=== PATIENT | male | born 1960 | race Caucasian/White ===

== ENCOUNTER 2020-04-27 10:01 | Emergency (ER) | payer BC, OTHER, SELFPAY ==
--- NOTE | 2020-04-27 10:10 | ED.SKABFB ---
HPI - Skin/Abscess/Foreign Bdy General Chief complaint: Skin/Abscess/Foreign Body Stated complaint: red infection on leg Time Seen by Provider: 04/27/20 10:09 Source: patient and RN notes reviewed Mode of arrival: ambulatory Limitations: no limitations History of Present Illness HPI narrative: 59-year-old male history of type 2 diabetes presents concern for red, warm area to his left anterior lower leg. Reports symptoms started yesterday, reports he had a fever yesterday of 103, with chills. Reports he took ibuprofen and the fever resolved. Denies any fever today. Reports he recently had a checkup with his primary care physician, and reports his blood sugars are under control. MD complaint: discoloration Related Data Home Medications Medication Instructions Recorded Confirmed dapagliflozin [Farxiga] 5 mg DAILY 04/27/20 04/27/20 glipizide 10 mg DAILY 04/27/20 04/27/20 metformin 1,000 mg BID 04/27/20 04/27/20 simvastatin 40 mg DAILY 04/27/20 04/27/20 Allergies Allergy/AdvReac Type Severity Reaction Status Date / Time No Known Drug Allergies Allergy Unknown Verified 06/13/17 13:55 Review of Systems Review of Systems: Narrative: CONSTITUTIONAL: Denies malaise. Reports chills, fever. EYES: Denies visual changes, redness, or discharge. ENT: Denies rhinorrhea, congestion, sinus pain, otalgia or sore throat. CARDIOVASCULAR: Denies chest pain, palpitations, or edema. RESPIRATORY: Denies cough or dyspnea. GASTROINTESTINAL: Denies abdominal pain, nausea, vomiting, diarrhea SKIN: Reports red, tender, swollen area on the left leg MUSCULOSKELETAL: Denies musculoskeletal pain NEUROLOGIC: Denies numbness, weakness All systems reviewed & are unremarkable except as noted in HPI and below PMFSH Social History Social History Gender identity (if verbalized by the patient): Female Comments At time of signature, agree with nursing past medical, surgical, social and family history. There is no relevant family history pertinent to the presenting complaint Exam Narrative: Exam Narrative: GENERAL: Well-appearing, well-nourished, and in no acute distress. HEAD: Normocephalic, atraumatic. EYES: PERRLA, conjunctivae clear ENT: Mucous membranes moist. NECK: Supple. No lymphadenopathy CHEST: Clear to auscultation. No respiratory distress. HEART: Regular rate and rhythm. Normal peripheral pulses SKIN: Warm, dry. Erythema, edema, warmth, induration noted to the left anterior lower leg consistent with cellulitis NEURO: Alert and oriented x3. PSYCH: Normal mood and affect Course Course Emergency Course: Patient is aware of diagnosis, understands and agrees to treatment plan. Anticipatory guidance given. Patient agrees to follow-up as directed and is aware of reasons to seek care at the emergency department. Portions of this record may have been created with voice recognition software Vital Signs Vital signs: Vital Signs Temperature 98.7 F 04/27/20 10:13 Pulse Rate 83 04/27/20 10:13 Respiratory Rate 18 04/27/20 10:13 Blood Pressure 123/52 L 04/27/20 10:13 Pulse Oximetry 100 04/27/20 10:13 Temperature 98.7 F 04/27/20 10:13 Pulse Rate 83 04/27/20 10:13 Respiratory Rate 18 04/27/20 10:13 Blood Pressure 123/52 L 04/27/20 10:13 Pulse Oximetry 100 04/27/20 10:13 Reviewed. MDM - Skin/Abscess/Foreign Bdy MDM Narrative Medical decision making narrative: Exam findings show no acute concerns or changes; patient is non-toxic appearing and is in no distress. Patient is appropriate for outpatient treatment and follow-up. Critical Care Time Critical Care Time Critical Care Time: No Discharge Plan Discharge Clinical Impression: Cellulitis Qualifiers: Site of cellulitis: extremity Site of cellulitis of extremity: lower extremity Laterality: left Qualified Code(s): L03.116 - Cellulitis of left lower limb Patient Disposition: Home, Self-Care Condition: Stable Instructions: Antibiotic Form, Cell
[2020-04-27 10:13] VITALS: BP 123/52; PULSE 83; RESP 18; TEMP 37.1; O2SAT 100
== END 2020-04-27 10:22 | disposition home or self-care (01) ==
PROVIDERS: Emergency Provider Nurse Practitioner; PCP Family Medicine
DX: L03.116 Cellulitis of left lower limb (principal); E78.00 Pure hypercholesterolemia, unspecified; E11.9 Type 2 diabetes mellitus without complications
CPT/HCPCS: 99213; G0463

== ENCOUNTER 2020-06-01 23:17 | Inpatient (IN) | payer BC, OTHER, SELFPAY ==
--- NOTE | ~2020-06-01 | CT_ITS ---
EXAMINATION: CT abdomen pelvis w con INDICATION: Abdominal pain and fever TECHNIQUE: Computed tomographic images of the abdomen and pelvis were obtained after the administrati on of 100 cc of Omnipaque 350 intravenous contrast. The dose-length product (DLP) was 1535.67 mGy-cm. Automated exposure control and iterative reconstruction technique were employed. COMPARISON: None available FINDINGS: The lung bases are clear. The heart size is normal. Calcified coronary artery atheroscleros is is noted. There is mild nodularity of the liver surface. There is enhancement in her mild thickeni ng of the gallbladder wall with pericholecystic fat stranding. The spleen, pancreas, and adrenal glan ds are normal. The kidneys are unremarkable. No pathologically enlarged abdominal or pelvic lymph nod es are identified. There is no free intraperitoneal gas or evidence of bowel obstruction. The appendi x is normal. There is a fat-containing umbilical hernia. IMPRESSION: 1. Findings suspicious for acute cholecystitis. Correlate for right upper quadrant tenderness and if present, recommend right upper quadrant ultrasound and/or nuclear hepatobiliary scan. Reviewed, dictated and finalized at location A. UER PIN PRESS OPERATOR IMPRESSION: 1. Findings suspicious for acute cholecystitis. Correlate for right upper quadr ant tenderness and if present, recommend right upper quadrant ultrasound and/or nuclear hepatobiliary scan.
--- NOTE | ~2020-06-01 | NM_ITS ---
EXAMINATION: NM hepatobiliary w pharm EXAM DATE: 06/03/2020 14:04 INDICATION: CT suggesting acute cholecystitis. TECHNIQUE: 5 mCi Tc-99m mebrofenin (Choletec) was administered intravenously. Scintigraphic images o f the abdomen were obtained for one hour. At the 1 hour time point, 2.4 mcg sincalide (Kinevac) was a dministered by slow intravenous infusion, and imaging was continued for 30 minutes. Gallbladder eject ion fraction was calculated by the technologist. Correlation is made to CT scan from yesterday. FINDINGS: There is normal clearance of radiotracer from the blood pool. There is homogeneous tracer u ptake by the liver. Activity progresses to the gallbladder at 20 minutes and and bowel by 1 hour. Th e gallbladder ejection fraction (GBEF) is 89 % (most patients with gallbladder dysfunction have GBEF < 35%, but there is overlap with the normal range of 10-90%). IMPRESSION: Gallbladder ejection fraction 89%, within normal range. Reviewed, dictated and finalized at location A. INIST
--- NOTE | ~2020-06-01 | XR_ITS ---
EXAMINATION: XR chest 1V portable INDICATION: Chest pain TECHNIQUE: Portable AP chest at 0301 hours COMPARISON: None available FINDINGS: The lungs are free of acute opacities. There is no pleural effusion or pneumothorax. The ca rdiomediastinal silhouette is normal. IMPRESSION: 1. No acute cardiopulmonary abnormality. Reviewed, dictated and finalized at location A. L PRESS OPERATOR
--- NOTE | 2020-06-01 23:20 | PC.NURSE ---
Pt. daughter Solis phone number [phone]. call w/ updates
[2020-06-01 23:24] VITALS: BP 105/55; PULSE 95; RESP 24; O2SAT 99
--- NOTE | 2020-06-01 23:27 | ECG_ITS ---
Measurements Intervals [place] Rate: 106 P: 48 [place]: 167 QRS: 17 QRSD: 86 T: 46 QT: 365 QTc: 486 Interpretive Statements SINUS TACHYCARDIA BORDERLINE ST ABNORMALITY- ANT/HIGH LAT LEADS ABNORMAL ECG Electronically Signed On 06-02-2020 7:39:02 ROUGHENER by Jamari Moody D.O.
--- NOTE | 2020-06-01 23:31 | ED.ABDPAIN ---
HPI - Abdominal Pain General Chief Complaint: Abdominal Pain Stated Complaint: Dizzy, Chest tightness, fever Time Seen by Provider: 06/01/20 23:31 Source: patient Mode of arrival: ambulatory Limitations: no limitations History of Present Illness HPI narrative: Patient is a 59-year-old male with a history of type 2 diabetes who presents for evaluation of dark, tarry stool, abdominal pain. Patient reports he has been feeling unwell over the past 24 hours with upper abdominal pain as well as dark, tarry stools that developed on Sunday. Patient also states he had one episode of emesis that was dark brown in color. Patient denies taking any anticoagulation. He denies has any history of GI bleed. He denies any chronic ibuprofen use. Patient reports he has felt febrile with chills. He denies cough or shortness of breath. He reports feeling lightheaded and dizzy with standing. He endorses a mild squeezing chest tightness but denies overt pain. He denies back pain, jaw or shoulder pain. He denies diaphoresis. Patient denies any syncopal events. His daughter is a nurse and she drove him to the emergency department this evening. She is not present with him currently. Related Data Home Medications Medication Instructions Recorded Confirmed dapagliflozin [Farxiga] 5 mg DAILY 04/27/20 04/27/20 glipizide 10 mg PO BID 04/27/20 04/27/20 metformin 1,000 mg BID 04/27/20 04/27/20 simvastatin 40 mg DAILY 04/27/20 04/27/20 aspirin [Adult Aspirin] 81 mg PO DAILY 06/02/20 exenatide microspheres [Bydureon] mg SUBCUT WEEKLY 06/02/20 lisinopril 10 mg PO DAILY 06/02/20 Allergies Allergy/AdvReac Type Severity Reaction Status Date / Time No Known Drug Allergies Allergy Unknown Verified 06/13/17 13:55 Review of Systems Review of Systems: Narrative: CONSTITUTIONAL: Reports subjective fever and chills EYES: Denies visual changes, redness, or discharge. ENT: Denies rhinorrhea, congestion, sore throat, or otalgia. CARDIOVASCULAR: Reports mild chest pain without palpitations RESPIRATORY: Denies cough or dyspnea. GASTROINTESTINAL: Reports abdominal pain, nausea, earlier episodes of emesis and dark/tarry stool GENITOURINARY: Denies dysuria or hematuria. SKIN: Denies rash or itching. MUSCULOSKELETAL: Denies back pain, joint pain, or myalgia. NEUROLOGIC: Denies headache, numbness, or weakness. Reports lightheadedness. [facility] Past Medical History Medical History Cellulitis Hypertension Type 2 diabetes mellitus Social History Social History Alcohol intake: never Substance use: never Living arrangements: with family Gender identity (if verbalized by the patient): Male Exam Narrative: Exam Narrative: GENERAL: Awake, alert HEAD: Normocephalic, atraumatic. EYES: PERRLA and EOMI. ENT: Nares clear, no rhinorrhea or epistaxis. Mucous membranes moist. NECK: Supple. CHEST: No respiratory distress, breathing even and non labored HEART: Borderline tachycardic rate, sinus rhythm ABDOMEN:Non distended, mild left lower quadrant tenderness without rebound, rigidity or guarding Rectal exam: Grossly melanotic stool, guaiac positive, no fissures EXTREMITIES: Normal range of motion. No edema. SKIN: Pale, cool. No rash. NEURO:No focal deficits. Alert and oriented x3 Course Vital Signs Vital signs: Vital Signs Pulse Rate 95 06/01/20 23:24 Respiratory Rate 24 H 06/01/20 23:24 Blood Pressure 105/55 L 06/01/20 23:24 Pulse Oximetry 99 06/01/20 23:24 Temperature 36.8 C 06/02/20 03:02 Pulse Rate 96 06/02/20 03:03 Respiratory Rate 21 H 06/02/20 03:03 Blood Pressure 95/50 L 06/02/20 03:03 Pulse Oximetry 100 06/02/20 03:03 MDM - Abdominal Pain MDM Narrative Medical decision making narrative: Patient is a 59-year-old male who presented for evaluation of dark, tarry stool, abdominal pain. At the time of assessment,
[2020-06-02] VITALS (38 sets, daily range): BP systolic 80–122; BP diastolic 33–85; PULSE 81–105; RESP 16–25; TEMP 36.6–37.2; O2SAT 94–100; BMI 44.1
[2020-06-02 00:02] LABS: Mean Corpuscular HGB Conc 32.9 g/dl (32-36); Mean Corpuscular Hemoglobin 30.5 pg (26-34); Mean Corpuscular Volume 92.5 fl (80-100); Mean Platelet Volume 11.8 fl (7.4-10.4); Platelet Count Result 143 k/mm3 (150-375); Red Blood Count 1.74 M/mm3 (4.6-6.20); Red Cell Distribution Width 15.5 % (11.5-14.5); White Blood Count 20.4 K/mm3 (4.5-10.0)
[2020-06-02] MEDS: SODIUM CHLORIDE 0.9% IV 1,000 ML 999 ML IV CONT ×2 (00:10→10:19)
[2020-06-02 00:11] LABS: INR 1.4; Prothrombin Time 17.4 Seconds (11.1-14.7)
[2020-06-02] MEDS: ONDANSETRON INJ 4 MG/2 ML VIAL IV PUSH (00:11)
[2020-06-02] MEDS: PANTOPRAZOLE SODIUM IV 40 MG VIAL 80 MG IV PUSH (00:11)
[2020-06-02 00:12] LABS: Partial Thromboplastin Time 28.2 SECONDS (22.3-36.8)
[2020-06-02 00:18] LABS: Hematocrit 16.1 % (42.0-52.0); Hemoglobin 5.3 g/dL (14.0-18.0)
[2020-06-02 00:20] LABS: Albumin Level 2.3 g/dL (3.5-5.1); Alkaline Phosphatase 31 U/L (38-126); Anion Gap 13 mmol/L (8-16); Aspartate Amino Transferase 23 U/L (17-59); Bilirubin,Total 0.4 mg/dL (0.2-1.3); Blood Urea Nitrogen 41 mg/dL (9-20); Carbon Dioxide 17 mmol/L (22-30); Chloride 100 mmol/L (98-107); Eosinophils Absolute Manual 0.61 K/mm3 (0.02-0.5); Eosinophils Percent Manual 3 % (0-4); Estimated CRCL calculation 86 ml/min; Estimated Glomerular Filt Rate > 60; Glucose 173 mg/dL (75-110); Lipase 257 U/L (23-300); Lymphocytes Absolute Manual 5.91 K/mm3 (1.1-4.5); Monocytes Absolute Manual 3.67 K/mm3 (0.1-0.90); Monocytes Percent Manual 18 % (3-9); Neutrophils Percent Manual 50 % (46-73); Nucleated Red Blood Cells 2 %; Platelet Estimate Adequate (Adequate); Potassium 3.7 mmol/L (3.4-5.0); Sodium 130 mmol/L (137-145); Total Cells Counted 100
[2020-06-02 00:21] LABS: Hypochromasia 1+ (NORMAL); Ovalocytes 1+ (NORMAL)
[2020-06-02 00:23] LABS: Lactic Acid Reflex 8.3 mmol/L (0.7-2.1)
[2020-06-02 00:27] LABS: Troponin I 0.016 ng/mL (0.000-0.034)
[2020-06-02 00:35] LABS: Alanine Aminotransferase 22 U/L (4-50)
--- NOTE | 2020-06-02 01:46 | PM.IMHP ---
H&P: HPI History of Present Illness Date/Time: 06/02/20 01:46 Chief Complaint: Abd pain, dark black stools. Narrative: This is a pleasant 59-year-old type two obese diabetic male who presented to the hospital with a complaint of dark tarry stools since this past weekend, vomiting up blood, as well as abdominal discomfort. He describes that his symptoms started on Sunday when he got nauseated and vomited up dark bloody material. Associated symptoms include dizziness. He denies any chest pain, fevers, chills, cough, significant shortness of breath, dysuria, hematuria, diarrhea, or focal neurological deficits. The patient has no previous history of GI bleeds and his last colonoscopy was about 3 years ago. He states that he was told that he had a polyp but otherwise there was no other abnormalities on his colonoscopy. The patient is not on any anticoagulants or anti-platelet agents. He also denies any daily NSAID use. The patient has no previous history of peptic ulcer disease but has never had any EGD done before. The patient was evaluated emergency room this evening and found to be hypotensive and severely septic. His H&H came back at 5.3 and 16.1. His white blood cell count was 20,400 and his lactic acid was 8.3. CT abd/pelvis demonstrated gallbladder is underdistended, there appears to be wall getting an inflammation around the gallbladder wall. Mild thickening of the descending colon with trace fluid in the left lower quadrant. The patient has been treated with IV fluids, antibiotics, protonix, and is going to receive pRBC transfusions. ER provider has consulted Gastroenetrology and our Home Visits Nurse. Review of Systems Review of Systems: All systems reviewed & are unremarkable except as noted in HPI and below PMFSH Past Medical History Medical History Cellulitis Hypertension Type 2 diabetes mellitus Social History Social History Alcohol intake: never Substance use: never Living arrangements: with family Gender identity (if verbalized by the patient): Male Comments Past surgical history and family medical histories are reviewed and noncontributory. Meds Home Medications and Allergies Home Medications Medication Instructions Recorded Confirmed Type cephalexin 500 mg PO QID 10 Days #40 cap 04/27/20 Rx dapagliflozin [Farxiga] 5 mg DAILY 04/27/20 04/27/20 History glipizide 10 mg PO BID 04/27/20 04/27/20 History metformin 1,000 mg BID 04/27/20 04/27/20 History simvastatin 40 mg DAILY 04/27/20 04/27/20 History aspirin [Adult Aspirin] 81 mg PO DAILY 06/02/20 History exenatide microspheres [Bydureon] mg SUBCUT WEEKLY 06/02/20 History lisinopril 10 mg PO DAILY 06/02/20 History Allergies Allergy/AdvReac Type Severity Reaction Status Date / Time No Known Drug Allergies Allergy Unknown Verified 06/13/17 13:55 Vital Signs Vital Signs - 24 hr 06/01/20 23:24 06/02/20 00:01 06/02/20 00:02 Pulse Rate 95 94 94 Respiratory Rate 24 H 22 H 24 H Blood Pressure 105/55 L 80/39 L Pulse Oximetry 99 100 100 06/02/20 00:22 06/02/20 01:11 Pulse Rate 85 105 H Respiratory Rate 23 H 21 H Blood Pressure 100/56 L Pulse Oximetry 98 100 Exam Const: General: cooperative, alert, awake, ill appearing, tired appearing and other (Pale appearing++ ) Nutritional Appearance: well nourished and obese morbidly obese HENMT: Head: normal to inspection General nose exam: Normal external nose present Face and sinus: normal facial exam Mouth: Yes Normal oral and palatal mucosa present and Yes oropharynx normal Eyes: Pupils: Equal, round and reactive pupils present EOM: EOMs intact bilaterally Neck: Neck: supple and no JVD Thyroid: thyroid normal Lymphatic: lymphadenopathy not noted Resp: Effort & Inspection: normal respiratory effort Auscultation: clear to auscultation bilaterally Cardio: Rate: regular rate
[2020-06-02 02:35] LABS: Add Urine Microscopic? YES; Appearance Urine Clear (Clear); Bacteria Urine Trace /hpf; Bilirubin Urine Negative (Negative); Blood Urine Negative (Negative); Color Urine Yellow (Yellow); Glucose Urine UA 3+ mg/dL (Negative); Ketones Urine Trace mg/dL (Negative); Leukocyte Esterase Ur Negative LEU/UL (Negative); Mucus Urine Rare /lpf; Nitrate Urine Negative (Negative); Protein Urine Negative (Negative); RBC Urine 0-2 /hpf (0-2); Specific Grav Ur 1.022 (1.001-1.035); Squamous Epithelial Cell Urine Rare /hpf (Few); Urobilinogen Urine Negative mg/dL (<2.0); WBC Urine 0-3 /hpf
[2020-06-02] MEDS: SODIUM CHLORIDE 0.9% IV 250 ML 30 ML IV CONT ×2 (02:45→09:39)
[2020-06-02 02:59] LABS: Reflex Lactic Acid Yes or No Add Lactic
[2020-06-02] MEDS: SODIUM CHLORIDE 0.9% IV 1,000 ML 125 ML IV CONT ×3 (03:43→22:06)
--- NOTE | 2020-06-02 03:51 | ADMGEN ---
This patient, Tim Silva, was admitted to Intensive Care Unit-7 at 0330 on 06/02/2020. Patient/family oriented to hospital policies and general routines including ID bracelet, bed and alarms, visiting hours, pain management, procedures, bathroom and other care routines, personal items, smoking policy, room service/diet, and visiting hours. Information on how to activate the Rapid Response Team has been discussed. Patient/Family are encouraged to report perceived risks to care and to ask questions if they do not understand what they are told or what they should do.
[2020-06-02 05:09] LABS: Lactic Acid 6.9 mmol/L (0.7-2.1)
[2020-06-02 05:17] LABS: Troponin I 0.015 ng/mL (0.000-0.034)
[2020-06-02 06:23] LABS: Glucose Point of Care 151 (65-105)
--- NOTE | 2020-06-02 06:33 | ECG_ITS ---
Measurements Intervals [place] Rate: 94 P: 47 [place]: 176 QRS: 13 QRSD: 80 T: 56 QT: 361 QTc: 453 Interpretive Statements SINUS RHYTHM BASELINE WANDER- V4-V6 NORMAL ECG Electronically Signed On 06-04-2020 10:59:36 PROGRAM ANALYST by Jamari Moody D.O.
[2020-06-02 08:29] LABS: Hematocrit 20.2 % (42.0-52.0); Hemoglobin 6.8 g/dL (14.0-18.0)
[2020-06-02 08:34] LABS: Mean Corpuscular HGB Conc 33.2 g/dl (32-36); Mean Corpuscular Hemoglobin 30.5 pg (26-34); Mean Corpuscular Volume 91.8 fl (80-100); Mean Platelet Volume 11.1 fl (7.4-10.4); Platelet Count Result 104 k/mm3 (150-375); Red Cell Distribution Width 15.2 % (11.5-14.5)
[2020-06-02 08:45] LABS: Lactic Acid Reflex 5.6 mmol/L (0.7-2.1)
--- NOTE | 2020-06-02 09:51 | WPDCNINT ---
Assessment and Plan Assessment and plan (1) Acute GI bleeding: Code(s): K92.2 - Gastrointestinal hemorrhage, unspecified Status: Acute Assessment and Plan: Peptic ulcer disease versus gastritis Patient has received 2 units of packed red cells. Hemoglobin 6.8 despite. Will transfuse additional 1 unit Continue serial monitoring of hemoglobin, NPO GI consulted and plan for EGD today Continue IV protonix drip. (2) Cholecystitis: Code(s): K81.9 - Cholecystitis, unspecified Status: Acute Assessment and Plan: CT abdomen pelvis suggested swelling of gallbladder wall suspicious of acute cholecystitis. No gallstones were seen Patient denies any symptoms since that could be attributed to cholecystitis and is not tender in right upper quadrant. Discuss with surgery. They will order further imaging either right upper quadrant ultrasound or HIDA scan to further evaluate Continue Zosyn (3) Sepsis: Code(s): A41.9 - Sepsis, unspecified organism Status: Acute Assessment and Plan: Patient did meet criteria for sepsis on presentation with elevated white count and lactic acid level But this could be secondary to GI bleed UA and chest x-ray were negative Blood culture has been sent and are pending Patient has not required any vasopressor Lactate is improving Continue Zosyn at this time Continue IV fluids. Will give additional 1 L bolus (4) Thrombocytopenia: Code(s): D69.6 - Thrombocytopenia, unspecified Status: Acute Assessment and Plan: Monitor platelets. Transfuse prn. SCDs (5) Type 2 diabetes mellitus: Qualifiers: Diabetes mellitus buttermaker insulin use: without buttermaker use Diabetes mellitus complication status: without complication Qualified Code(s): E11.9 - Type 2 diabetes mellitus without complications Code(s): E11.9 - Type 2 diabetes mellitus without complications Status: Chronic Assessment and Plan: Accuchecks, SSI Coverage, hypoglycemic protocol. (6) Hypertension: Qualifiers: Hypertension type: unspecified Qualified Code(s): I10 - Essential (primary) hypertension Code(s): I10 - Essential (primary) hypertension Status: Chronic Assessment and Plan: Hold antihypertensives as the patient has normal to low blood pressure right now Additional Plan DVT prophylaxis -SCDs Stress ulcer prophylaxis -on IV PPI infusion Nutrition -NPO Code Status - Full Code Total Critical Care Time - 30 minutes Due to a high probability of clinically significant, life threatening deterioration, the patient required my highest level of preparedness to intervene emergently and I personally spent this critical care time directly and personally managing the patient. This critical care time included obtaining a history; examining the patient; pulse oximetry; ordering and review of studies; arranging urgent treatment with development of a management plan; evaluation of patient's response to treatment; frequent reassessment; and discussions with other providers. It was exclusive of separately billable procedures and treating other patients and teaching time. Please see Assessment and Plan section and the rest of the note for further information on patient assessment and treatment Tool Chaser Consult Note Consult date: 06/02/20 Time Seen: 08:00 HPI: Tim Silva is a 59 year old male with past medical history of obesity, diabetes and hypertension who presented to the ED last night with a complaint of dark tarry stools since this past weekend, vomiting up blood, as well as abdominal discomfort. He describes that his symptoms started on Sunday when he got nauseated and vomited up bright red blood. Patient also has some abdominal pain which he thought was mild. He vomited at least 3 times. Later he noted dark black tarry stool. Yesterday evening 6 started feeling dizzy and weak and hence was forced to come to ER. In ED he was
--- NOTE | 2020-06-02 10:37 | PC.NURSE ---
TAKEN TO GI LAB PER STRETCHER. PRBCS INFUSING PER PUMP WITHOUT DIFFICULTIES.
[2020-06-02 10:46] LABS: Glucose Point of Care 149 (65-105)
[2020-06-02] MEDS: LACTATED RINGERS 1,000 ML 150 ML IV CONT (10:48)
--- NOTE | 2020-06-02 11:27 | WPDGICN ---
Assessment and Plan Assessment and plan (1) Acute GI bleeding: Code(s): K92.2 - Gastrointestinal hemorrhage, unspecified Status: Acute Assessment and Plan: admitted to ICU, most likely ugib he is getting blood transfusion will do urgent EGD with more recommendations after scope (2) Symptomatic anemia: Code(s): D64.9 - Anemia, unspecified Status: Acute Assessment and Plan: transfusion with target hb>7 active gib, suppportive care in icu and EGD (3) Shock: Code(s): R57.9 - Shock, unspecified Status: Acute Assessment and Plan: icu on board, BP better now, started empirically on iv antibiotics (4) Sepsis: Code(s): A41.9 - Sepsis, unspecified organism Status: Acute (5) Type 2 diabetes mellitus: Qualifiers: Diabetes mellitus manager long term care insulin use: without manager long term care use Diabetes mellitus complication status: without complication Qualified Code(s): E11.9 - Type 2 diabetes mellitus without complications Code(s): E11.9 - Type 2 diabetes mellitus without complications Status: Chronic (6) Thrombocytopenia: Code(s): D69.6 - Thrombocytopenia, unspecified Status: Acute Assessment and Plan: I wonder if may have liver disease, will continue to monitor and await EGD also noted possible cholecystitis but normal liver enzymes and no much of abdominal pain, if develops symptoms then can order hida scan, surgery on board (7) Morbid obesity with BMI of 40.0-44.9, adult: Code(s): E66.01 - Morbid (severe) obesity due to excess calories; Z68.41 - Body mass index [BMI]40.0-44.9, adult Status: Acute (8) Lactic acid acidosis: Code(s): E87.2 - Acidosis Status: Acute GI Consult Note Consult date/time: 06/02/20 11:27 Reason for consult: melena, gib HPI: Tim Silva is a 59 year old male with history of obesity, diabetes who came to ER with new onset of dark tarry stools last few days with coffee ground emesis and abdominal discomfort, he also was lightheaded, denies previous history of GIB, had colonoscopy about 3 years ago with only polyp. He is not on any anticoagulants or anti-platelet agents, no use of NSAID. He was hypotensive, His Hb was 5.3 and admitted to ICU, received blood transfusion, WBC was 20,400 and lactic acid 8.3, platelets 140k. CT abd/pelvis demonstrated gallbladder is underdistended with mild thickening of wall suspicious for acute cholecystitis. Also started on iv antibiotics. Review of Systems Constitutional: Constitutional: Reports fatigue and Reports lethargy Eyes: Eyes: Denies blurry vision ENT: Reports system reviewed and no additional complaints, except as documented Cardiovascular: Cardiovascular: Denies chest pain Respiratory: Respiratory: Denies cough Gastrointestinal: Gastrointestinal: Reports melena, Reports nausea and Reports hematemesis Genitourinary: Genitourinary: Denies dysuria Musculoskeletal: Musculoskeletal: Denies stiffness Integumentary/Breasts: Skin/Breast: Denies dry skin Neurologic: Denies confusion Psychiatric: Psychiatric: Denies anxiety [facility] Past Medical History Medical History Cellulitis Hyperlipidemia Hypertension Type 2 diabetes mellitus Surgical History Surgical History History of colonoscopy with polypectomy Family History Family History Sibling Colon cancer Father Malignant neoplasm of prostate Social History Social History Social History: The patient lives at home with his . He has 2 children. Currently works at home for [employer] due to the pandemic. Smoking status: Never smoker Alcohol intake: former Substance use: never Living arrangements: with family Gender identity (if verbalized by
--- NOTE | 2020-06-02 11:43 | PM.CNGS ---
Assessment and Plan Assessment and plan (1) Cholecystitis: Code(s): K81.9 - Cholecystitis, unspecified Status: Acute Assessment and Plan: CT scan suggesting gallbladder wall thickening and some pericholecystic fat stranding, concerning for acute cholecystitis. Although he is high risk for acute cholecystitis, clinically, the patient does not correlate with this and has no right upper quadrant tenderness or any abdominal pain at this time. He denies any symptoms prior to admission that would correlate with gallbladder disease. We will initiate broad-spectrum IV antibiotics until cholecystitis is ruled out. We would like for the patient to be stabilized and have work-up from GI prior to any further testing on the gallbladder. May consider HIDA scan to further evaluate for acute cholecystitis. If a HIDA scan would confirm acute cholecystitis, he is still a high risk surgical candidate, and we would plan to proceed with a percutaneous cholecystostomy tube if needed rather than cholecystectomy at this time. Will await results of endoscopy today and continue to follow the patient. Thank you for allowing us to see the patient consultation. (2) Acute GI bleeding: Code(s): K92.2 - Gastrointestinal hemorrhage, unspecified Status: Acute Assessment and Plan: Hemoglobin 5.3 on admission, he is on his 3rd unit of packed red blood cells, most recent hemoglobin was 6.8. Continue Protonix drip. GI consulted, will await their recommendations. (3) Sepsis: Code(s): A41.9 - Sepsis, unspecified organism Status: Acute Assessment and Plan: Sepsis criteria met on admission, although this could be related to the GI bleed. Seems unlikely that he has acute cholecystitis as a source of septic shock. Continue broad-spectrum IV antibiotics at this time. Patient has been fluid resuscitated, continue IV fluids. Monitor lactic acid. (4) Thrombocytopenia: Code(s): D69.6 - Thrombocytopenia, unspecified Status: Acute Assessment and Plan: Platelets 104,000 this morning. Continue to trend labs. Transfuse as needed. (5) Type 2 diabetes mellitus: Qualifiers: Diabetes mellitus seed analyst insulin use: without seed analyst use Diabetes mellitus complication status: without complication Qualified Code(s): E11.9 - Type 2 diabetes mellitus without complications Code(s): E11.9 - Type 2 diabetes mellitus without complications Status: Chronic Assessment and Plan: Increases risks of surgery. Management per primary team. (6) Hypertension: Qualifiers: Hypertension type: unspecified Qualified Code(s): I10 - Essential (primary) hypertension Code(s): I10 - Essential (primary) hypertension Status: Chronic Assessment and Plan: Management per primary team. (7) Morbid obesity with BMI of 40.0-44.9, adult: Code(s): E66.01 - Morbid (severe) obesity due to excess calories; Z68.41 - Body mass index [BMI]40.0-44.9, adult Status: Acute Assessment and Plan: Increases risks of surgery. Additional Plan Discussed the patient's case and plan of care with Dr. Taylor. History of Present Illness Consult details Consult date: 06/02/20 Reason for consult: other (Possible acute cholecystitis) Requesting physician: Tennille Esparza MD Narrative: This is a 59-year-old obese male with a history of type 2 diabetes mellitus, hypertension, and hyperlipidemia, who presented to the emergency department with complaints of hematemesis, abdominal pain, and dark tarry stools. The patient reports 2 episodes of vomiting bloody emesis 3 days ago along with having upper abdominal pain. Following the hematemesis, he reports having dark tarry stools since Sunday. His last bowel movement was yesterday morning. He reports associated dizziness. He then presented to the emergency department last night for further evaluation. Labs revealed hemoglobin of 5.3, whi
[2020-06-02] MEDS: BENZOCAINE (*SP) 60 ML SPRAY CAN (HURRICAINE) 1 SPRAY MUCOUS MEM (12:21)
[2020-06-02 12:52] LABS: Glucose Point of Care 147 (65-105)
[2020-06-02 14:37] LABS: Hemoglobin 8.1 g/dL (14.0-18.0)
--- NOTE | 2020-06-02 15:18 | PM.IMPN ---
Progress Note: A&P Assessment and Plan (1) Acute GI bleeding: Code(s): K92.2 - Gastrointestinal hemorrhage, unspecified Status: Acute Assessment and Plan: r/o Upper GI bleed. Admit to ICU, NPO, strict bedrest, continue IV protonix drip. Continue pRBC transfusion. Monitor H/H, continue to transfuse as needed. Feather Edger and Dope Weigh Operator have been consulted by ER provider. 06/02/20 15:18 Patient is morbidly obese with a past medical history of diabetes who presented emergency department with a complaint black tarry stools abdominal pain and just did not feel very well felt tired fatigue presented emergency department, upon arrival his hemoglobin 5.3 and in emergency depart his stool Hemoccult was positive, patient was given 2 units of pack RBC, patient denies and history of alcohol abuse or NSAID use, his hemoglobin remained stable, patient was seen by GI and was taken to the GI lab had a EGD did not show significant source of bleeding patient does have a esophageal varices and some gastritis started the patient on Protonix, and upon arrival patient was quite hypotensive upon arrival, suspected sepsis verses hypovolemia, patient was vigorously hydrated, patient did not require any pressor. Lactic acid is normal, patient started on Zosyn possible sepsis UA and chest x-ray are benign, will follow-up on blood culture, CT scan of the abdomen suggests possible acute cholecystitis patient be seen by surgery team and further recommendation to follow, currently patient states feeling much better compared to when he arrived, denies any abdominal pain nausea or vomiting currently he is eating his lunch, will continue to monitor further recommendation to follow (2) Symptomatic anemia: Code(s): D64.9 - Anemia, unspecified Status: Acute Assessment and Plan: Continue oxygen supplementation. Continue blood transfusion. Monitor H/H. (3) Septic shock: Code(s): A41.9 - Sepsis, unspecified organism; R65.21 - Severe sepsis with septic shock Status: Acute Assessment and Plan: Source of sepsis may be biliary vs. GI. Continue pRBC transfusion. Continue IV fluids. Monitor vital signs closely and urine output. Check reflex lactic acid. We will consider central line placement and vasopressor support if necessary. Continue wide spectrum antibiotics. Blood and urine cultures. (4) Leukocytosis: Qualifiers: Leukocytosis type: unspecified Qualified Code(s): D72.829 - Elevated white blood cell count, unspecified Code(s): D72.829 - Elevated white blood cell count, unspecified Status: Acute Assessment and Plan: Likely secondary to sepsis. Monitor CBCd. (5) Thrombocytopenia: Code(s): D69.6 - Thrombocytopenia, unspecified Status: Acute Assessment and Plan: Monitor platelets. Transfuse prn. (6) Type 2 diabetes mellitus: Qualifiers: Diabetes mellitus adjunct faculty for medical terminology insulin use: without adjunct faculty for medical terminology use Diabetes mellitus complication status: without complication Qualified Code(s): E11.9 - Type 2 diabetes mellitus without complications Code(s): E11.9 - Type 2 diabetes mellitus without complications Status: Chronic Assessment and Plan: Accuchecks, SSI Coverage, hypoglycemic protocol. (7) Hypertension: Qualifiers: Hypertension type: unspecified Qualified Code(s): I10 - Essential (primary) hypertension Code(s): I10 - Essential (primary) hypertension Status: Chronic Assessment and Plan: Hold antihypertensives as the patient is in septic shock. Resume when appropriate. Subjective Date/time seen: 06/02/20 15:18 Patient is morbidly obese with a past medical history of diabetes who presented emergency department with a complaint black tarry stools abdominal pain and just did not feel very well felt tired fatigue presented emergency department, upon arrival his hemoglobin 5.3 and in emergency depart his stool
[2020-06-02 17:51] LABS: Glucose Point of Care 165 (65-105)
[2020-06-02 20:15] LABS: Hematocrit 22.8 % (42.0-52.0); Hemoglobin 7.9 g/dL (14.0-18.0)
[2020-06-02] MEDS: PANTOPRAZOLE SODIUM IV 40 MG VIAL IV PUSH (22:15)
[2020-06-03] VITALS: BP 109/57; PULSE 91; PULSE 99; RESP 17; RESP 20; TEMP 36.5; O2SAT 100
[2020-06-03 02:00] VITALS: PULSE 87; RESP 16
[2020-06-03 03:31] VITALS: BP 110/78; PULSE 93; RESP 18; O2SAT 98
[2020-06-03 04:00] VITALS: BP 116/59; PULSE 80; RESP 16; RESP 18; TEMP 36.7; O2SAT 98
[2020-06-03 04:34] LABS: Basophils Percent Auto 0.3 % (0.2-1.2); Eosinophils Absolute Auto 0.4 K/mm3 (0-0.3); Eosinophils Percent Auto 2.8 % (0-4.4); Hematocrit 22.8 % (42.0-52.0); Hemoglobin 8.1 g/dL (14.0-18.0); Immature Granulocyte Absolute 0.32 K/mm3 (0.00-0.031); Immature Granulocyte Percent A 2.5 % (0-0.5); Lymphocytes Absolute Auto 3.19 K/mm3 (0.9-3.2); Lymphocytes Percent Auto 24.6 % (18.3-44.2); Mean Corpuscular HGB Conc 35.5 g/dl (32-36); Mean Corpuscular Hemoglobin 31.4 pg (26-34); Mean Corpuscular Volume 88.4 fl (80-100); Monocytes Absolute Auto 1.4 K/mm3 (0.1-0.6); Monocytes Percent Auto 10.7 % (2.6-8.5); Neutrophils Absolute Auto 7.7 K/mm3 (1.3-6.7); Neutrophils Percent Auto 59.1 % (45.5-73.1); Nucleated Red Blood Cells Absolute Auto 0.1 K/mm3 (0.0-0.012); Nucleated Red Blood Cells Perc 1.1 % (0.0-0.2); Red Blood Count 2.58 M/mm3 (4.6-6.20); Red Cell Distribution Width 15.4 % (11.5-14.5)
[2020-06-03 06:00] LABS: INR 1.3; Prothrombin Time 16.7 Seconds (11.1-14.7)
--- NOTE | 2020-06-03 06:00 | ECG_ITS ---
Measurements Intervals [place] Rate: 81 P: 4 NC: 155 QRS: 14 QRSD: 85 T: 30 QT: 374 QTc: 435 Interpretive Statements SINUS RHYTHM LOW QRS VOLTAGE IN PRECORDIAL LEADS BORDERLINE ECG Electronically Signed On 06-03-2020 13:24:23 FILM PRINTER by Jamari Moody D.O.
--- NOTE | 2020-06-03 06:21 | PC.NURSE ---
transfered to [facility] 6 via wheelchair
[2020-06-03 06:48] LABS: Alanine Aminotransferase 19 U/L (4-50); Albumin Level 2.4 g/dL (3.5-5.1); Alkaline Phosphatase 39 U/L (38-126); Anion Gap 5 mmol/L (8-16); Aspartate Amino Transferase 25 U/L (17-59); Bilirubin,Total 0.8 mg/dL (0.2-1.3); Blood Urea Nitrogen 19 mg/dL (9-20); Carbon Dioxide 22 mmol/L (22-30); Chloride 107 mmol/L (98-107); Estimated CRCL calculation 122 ml/min; Estimated Glomerular Filt Rate > 60; Glucose 148 mg/dL (75-110); Potassium 3.6 mmol/L (3.4-5.0); Sodium 134 mmol/L (137-145)
[2020-06-03 08:00] VITALS: BP 112/65; PULSE 92; RESP 16; TEMP 36.9; O2SAT 98
[2020-06-03 08:03] LABS: Glucose Point of Care 178 (65-105)
[2020-06-03] MEDS: SODIUM CHLORIDE 0.9% IV 1,000 ML 125 ML IV CONT (08:41)
--- NOTE | 2020-06-03 09:10 | PC.NURSE ---
PT here to work with patient
[2020-06-03 09:11] VITALS: O2SAT 96
--- NOTE | 2020-06-03 09:12 | PC.NURSE ---
O2 D/C'd at 0830, O2 sats at 96% on RA. PT walked ot to chair n RA,O2 sats at 98%.
--- NOTE | 2020-06-03 09:14 | PC.NURSE ---
Surgery DICTATING MACHINE MECHANIC in to see pt.
--- NOTE | 2020-06-03 09:18 | PC.NURSE ---
Nursing notes entered at 0910 and 0912 entered in error on wrong patient.
[2020-06-03 09:30] LABS: Hepatitis B Surface Antigen Negative (Negative)
[2020-06-03 09:35] LABS: HAV RESULT Negative (Negative); Hepatitis B Core IgM Result Negative (Negative)
[2020-06-03] MEDS: PANTOPRAZOLE SODIUM IV 40 MG VIAL IV PUSH (09:43)
[2020-06-03 09:47] LABS: Hepatitis C Virus Antibody Negative (Negative)
[2020-06-03 11:17] LABS: Glucose Point of Care 202 (65-105)
--- NOTE | 2020-06-03 11:47 | PM.DS ---
DS: Admitting Diagnosis Admitting Diagnosis Admitting Diagnosis: Abd pain, dark black stools. DS: Discharge Diagnosis Discharge Diagnosis (1) Acute GI bleeding: Code(s): K92.2 - Gastrointestinal hemorrhage, unspecified Status: Acute Assessment and Plan: r/o Upper GI bleed. Admit to ICU, NPO, strict bedrest, continue IV protonix drip. Continue pRBC transfusion. Monitor H/H, continue to transfuse as needed. Shank Piece Tacker and Label Machine Operator have been consulted by ER provider. 06/02/20 15:18 Patient is morbidly obese with a past medical history of diabetes who presented emergency department with a complaint black tarry stools abdominal pain and just did not feel very well felt tired fatigue presented emergency department, upon arrival his hemoglobin 5.3 and in emergency depart his stool Hemoccult was positive, patient was given 2 units of pack RBC, patient denies and history of alcohol abuse or NSAID use, his hemoglobin remained stable, patient was seen by GI and was taken to the GI lab had a EGD did not show significant source of bleeding patient does have a esophageal varices and some gastritis started the patient on Protonix, and upon arrival patient was quite hypotensive upon arrival, suspected sepsis verses hypovolemia, patient was vigorously hydrated, patient did not require any pressor. Lactic acid is normal, patient started on Zosyn possible sepsis UA and chest x-ray are benign, will follow-up on blood culture, CT scan of the abdomen suggests possible acute cholecystitis patient be seen by surgery team and further recommendation to follow, currently patient states feeling much better compared to when he arrived, denies any abdominal pain nausea or vomiting currently he is eating his lunch, will continue to monitor further recommendation to follow (2) Symptomatic anemia: Code(s): D64.9 - Anemia, unspecified Status: Acute Assessment and Plan: Continue oxygen supplementation. Continue blood transfusion. Monitor H/H. (3) Septic shock: Code(s): A41.9 - Sepsis, unspecified organism; R65.21 - Severe sepsis with septic shock Status: Acute Assessment and Plan: Source of sepsis may be biliary vs. GI. Continue pRBC transfusion. Continue IV fluids. Monitor vital signs closely and urine output. Check reflex lactic acid. We will consider central line placement and vasopressor support if necessary. Continue wide spectrum antibiotics. Blood and urine cultures. (4) Leukocytosis: Qualifiers: Leukocytosis type: unspecified Qualified Code(s): D72.829 - Elevated white blood cell count, unspecified Code(s): D72.829 - Elevated white blood cell count, unspecified Status: Acute Assessment and Plan: Likely secondary to sepsis. Monitor CBCd. (5) Thrombocytopenia: Code(s): D69.6 - Thrombocytopenia, unspecified Status: Acute Assessment and Plan: Monitor platelets. Transfuse prn. (6) Type 2 diabetes mellitus: Qualifiers: Diabetes mellitus pattern setter insulin use: without senior living use Diabetes mellitus complication status: without complication Qualified Code(s): E11.9 - Type 2 diabetes mellitus without complications Code(s): E11.9 - Type 2 diabetes mellitus without complications Status: Chronic Assessment and Plan: Accuchecks, SSI Coverage, hypoglycemic protocol. (7) Hypertension: Qualifiers: Hypertension type: unspecified Qualified Code(s): I10 - Essential (primary) hypertension Code(s): I10 - Essential (primary) hypertension Status: Chronic Assessment and Plan: Hold antihypertensives as the patient is in septic shock. Resume when appropriate. DS: Summary Hospital Course Reason for hospitalization: Chief Complaint: Abd pain, dark black stools. Narrative: This is a pleasant 59-year-old type two obese diabetic male who presented to the hospital with a complaint of dark tarry stools
--- NOTE | 2020-06-03 12:02 | PM.PNGS ---
Progress Note: A&P Assessment and Plan (1) Cholecystitis: Code(s): K81.9 - Cholecystitis, unspecified Status: Acute Assessment and Plan: CT scan on admission suggesting gallbladder wall thickening and some pericholecystic fat stranding, concerning for acute cholecystitis. Patient has been advanced to a DM diet and is tolerating this well. No abdominal pain today and his abdominal exam is benign. We will get a HIDA scan today to rule out acute cholecystitis. If there is no evidence of acute cholecystitis, then okay to advance patient's diet. If he has evidence of acute cholecystitis, we may consider percutaneous cholecystostomy tube placement. Will await results. Continue IV abx while HIDA is pending. (2) Acute GI bleeding: Code(s): K92.2 - Gastrointestinal hemorrhage, unspecified Status: Acute Assessment and Plan: Hemoglobin 5.3 on admission and now up to 8.1 this morning. Received 3 units of PRBCs. EGD yesterday showed multiple small ulcers in the stomach and one esophageal varice in the distal esophagus, no evidence of active bleeding. It is felt that the upper GI bleed was due to the gastric ulcers. Monitor H/H. Continue PPI and management per GI. (3) Sepsis: Code(s): A41.9 - Sepsis, unspecified organism Status: Acute Assessment and Plan: Sepsis criteria met on admission, although this could be related to the GI bleed. Seems unlikely that he has acute cholecystitis as a source of septic shock. Will get HIDA scan today to rule out acute cholecystitis. Continue broad-spectrum IV antibiotics. Lactic acid yesterday 5.6. Blood cultures NGTD. (4) Thrombocytopenia: Code(s): D69.6 - Thrombocytopenia, unspecified Status: Acute (5) Type 2 diabetes mellitus: Qualifiers: Diabetes mellitus group home insulin use: without group home use Diabetes mellitus complication status: without complication Qualified Code(s): E11.9 - Type 2 diabetes mellitus without complications Code(s): E11.9 - Type 2 diabetes mellitus without complications Status: Chronic (6) Hypertension: Qualifiers: Hypertension type: unspecified Qualified Code(s): I10 - Essential (primary) hypertension Code(s): I10 - Essential (primary) hypertension Status: Chronic (7) Morbid obesity with BMI of 40.0-44.9, adult: Code(s): E66.01 - Morbid (severe) obesity due to excess calories; Z68.41 - Body mass index [BMI]40.0-44.9, adult Status: Acute Additional Plan Discussed the patient's case and plan of care with Dr. Donaldson. Subjective Subjective Date/Time Seen: 06/03/20 10:02 Patient reports: no new complaints, feels better and tolerating a regular diet Interval history: Patient seen this morning. Endoscopy report from EGD yesterday was reviewed. H/H this morning stable. Patient denies any abdominal pain, nausea, vomiting, or bloating. Denies any hematemesis. No other complaints at this time. He has eaten a regular diet for breakfast (DM cons carb) and tolerated this well. Review of Systems Review of Systems: All systems reviewed & are unremarkable except as noted in HPI and below Constitutional: Constitutional: Denies chills and Denies fever(s) Exam Const: General: comfortable, no acute distress, alert and awake Nutritional Appearance: obese morbidly obese GI: Inspection: non-distended, obesity and no scars ( No obvious abdominal scars) GI Palp: Yes Soft to palpation, No Tenderness to palpation present (GI), No Guarding due to palpation present (GI), Yes No hepatosplenomegaly present and No Rebound tenderness present Auscultation: normal bowel sounds Skin: General skin exam: normal color Neuro: General: moves all extremities and no focal motor deficits Extrem: General: normal to inspection, full ROM and no clubbing, cyanosis or edema Psych: Appearance: grossly normal Mental Status: mental status grossly normal Speech and movement: Normal sp
--- NOTE | 2020-06-03 14:33 | PC.NURSE ---
HIDA scan results in chart. Spoke with Carley Howell NP to report results. Pt OK to D/C to home today. Surgery exchange called to notify Dr. Donaldson of pt D/C.
== END 2020-06-03 15:08 | disposition home or self-care (01) | DRG 871 ==
LOC: ANHED 06-02 02:01 → ANHICU 06-02 03:38 → ANHCPC 06-03 11:47 → ANHICU 06-07 17:22
PROVIDERS: Internal Medicine; Internal Medicine Gastroenterology; Admitting Provider Family Medicine; Emergency Provider Emergency Medicine; PCP Family Medicine; Visit Provider Family Medicine
PROC: 0DJ08ZZ Inspection of Upper Intestinal Tract, Via Natural or Artificial Opening Endoscopic (ICD-10-PCS; CPT 43235; principal; 2020-06-02 12:00)
DX: A41.9 Sepsis, unspecified organism (principal); R65.21 Severe sepsis with septic shock; K25.4 Chronic or unspecified gastric ulcer with hemorrhage; K81.0 Acute cholecystitis; I85.00 Esophageal varices without bleeding; E87.1 Hypo-osmolality and hyponatremia; Z68.41 Body mass index [BMI] 40.0-44.9, adult; D64.9 Anemia, unspecified; E66.01 Morbid (severe) obesity due to excess calories; D72.829 Elevated white blood cell count, unspecified; D69.6 Thrombocytopenia, unspecified; E11.9 Type 2 diabetes mellitus without complications; I10 Essential (primary) hypertension
CPT/HCPCS: 36415; 36430; 51701; 71045; 74177; 78227; 80053; 80074; 81001; 83605; 83690; 83735; 84484; 85014; 85018; 85025; 85027; 85055; 85610; 85730; 86850; 86900; 86901; 86923; 87040; 87081; 88305; 93005; 96361; 96374; 96375; 96376; 99285; A9270; A9537; C9113; J2001; J2405; J2543; J2704; J2805; J7030; J7050; J7060; J7120; P9016; Q9967

== ENCOUNTER 2020-08-18 10:31 | Outpatient (CLI) | payer BC, OTHER, SELFPAY | END 2020-08-18 10:32 | disposition home or self-care (01) | LOC: ANHCOVIDVC 10:31 | PROVIDERS: PCP Family Medicine | DX: Z23 Encounter for immunization (principal) | CPT/HCPCS: 0001A; 91300 ==

== ENCOUNTER 2020-09-08 10:28 | Outpatient (CLI) | payer BC, OTHER, SELFPAY | END 2020-09-08 10:29 | disposition home or self-care (01) | LOC: ANHCOVIDVC 10:28 | PROVIDERS: PCP Family Medicine | DX: Z23 Encounter for immunization (principal) | CPT/HCPCS: 0002A; 91300 ==

== ENCOUNTER 2021-10-31 01:27 | Day surgery (SDC) | payer BC, OTHER, SELFPAY ==
[2021-10-19 12:48] VITALS: BMI 43.0
--- NOTE | 2021-10-31 07:07 | WPDANESEPPF ---
Anes - Initial Pre Proc Eval Procedure: Operation Date: 10/31/21 08:30 Proposed Procedures p Esophagogastroduodenoscopy - Alvin Rodriguez MD Date/Time: 10/31/21 07:07 Surgeon: Alvin Rodriguez MD Pre Op Diagnosis: esophageal varices Patient Data Age: 61 Gender: M Height: 1.68 m Weight: 121 kg Allergies Allergy/AdvReac Type Severity Reaction Status Date / Time No Known Drug Allergies Allergy Unknown Unknown Verified 10/31/21 07:42 Home Medications Medication Instructions Recorded Confirmed Type Farxiga 5 mg DAILY 04/27/20 10/19/21 History glipizide 10 mg PO BID 04/27/20 10/19/21 History metformin 1,000 mg BID 04/27/20 10/19/21 History simvastatin 40 mg DAILY 04/27/20 10/19/21 History Bydureon 2 mg SUBCUT WEEKLY 06/02/20 10/19/21 History furosemide 20 mg PO BID 10/19/21 10/19/21 History spironolactone 100 mg PO DAILY 10/19/21 10/19/21 History Patient hx anesthesia problems: none Family hx anesthesia problems: none Results Review: All pre-operative results and documents have been reviewed as part of the pre-operative evaluation. [facility] Past Medical History Medical History (Updated 06/02/20 @ 12:43 by Joesph Hussein MD) Cellulitis Hyperlipidemia Hypertension Lactic acid acidosis Type 2 diabetes mellitus Surgical History Surgical History History of colonoscopy with polypectomy Family History Family History Sibling Colon cancer Father Malignant neoplasm of prostate Social History Social History Social History: The patient lives at home with his . He has 2 children. Currently works at home for [employer] due to the pandemic. Smoking status: Never smoker Alcohol intake: former Substance use: never Substance use type: does not use Living arrangements: with family Gender identity (if verbalized by the patient): Male Spiritual care concerns: No Anes - Eval Final PreProcedure Day of Procedure 10/31/21 07:07 Patient weight: morbidly obese Heart: regular rate and rhythm Lungs: clear to auscultation and normal air movement Airway: Mallampati scale class II Neurological: alert and oriented Last oral intake: >/= 8 hours ASA classification: III Emergent: no Anesthetic plan: proceed Anesthesia type and monitoring: general GIVS and standard monitoring Results Review: All pre-operative results and documents have been reviewed as part of the pre-operative evaluation. Informed Consent: The patient's anesthetic plan and its attendant risks and benefits were discussed with the patient/family/POA. Questions were solicited and answers provided to the satisfaction of the patient/family/POA.
[2021-10-31 07:43] VITALS: BP 90/68; PULSE 77; RESP 19; TEMP 36.6; O2SAT 99
[2021-10-31] MEDS: LACTATED RINGERS 1,000 ML 150 ML IV CONT (08:01)
[2021-10-31 08:02] LABS: Glucose Point of Care 128 mg/dl (65-105)
--- NOTE | 2021-10-31 08:21 | WPDGICN ---
Assessment and Plan Assessment and plan (1) Cirrhosis: Code(s): K74.60 - Unspecified cirrhosis of liver Status: Acute Assessment and Plan: Patient with cirrhosis of liver. [place] to be on the basis of prior alcohol use. Currently followed at [facility]. Remains on diuretics low-salt diet because of ascites. Has a history of esophageal varix nonbleeding in 2020. Plan is for surveillance EGD now and intervals in the future. (2) Esophageal varices: Code(s): I85.00 - Esophageal varices without bleeding Status: Acute Assessment and Plan: Non bleeding esophageal varix identified in 2020 felt be grade 1 at that time. Was non bleeding as he had an associated gastric ulcer. Will continue surveillance as described. (3) Morbid obesity with BMI of 40.0-44.9, adult: Code(s): E66.01 - Morbid (severe) obesity due to excess calories; Z68.41 - Body mass index [BMI] 40.0-44.9, adult Status: Acute Assessment and Plan: Patient is obese. Weight loss with calorie restriction increase exercise strongly encouraged. (4) Family hx of colon cancer: Code(s): Z80.0 - Family history of malignant neoplasm of digestive organs Status: Acute Assessment and Plan: Patient has a family history of colon cancer in the sister. He was found to have a colon polyp by colonoscopy 4 years ago. Anticipate follow-up colonoscopy at 5 years intervals. Anticipate colonoscopy 2022. GI Consult Note Consult date/time: 10/31/21 08:21 HPI: Tim Silva is a 61 year old male Presents for EGD. Patient has an underlying history of cirrhosis of liver. He has a distant history of alcohol intake when he was younger. He states much less so currently. Two years ago had episode of upper GI bleeding. An EGD by Dr. Beltran revealed gastric ulceration. At that time he was described as having a nonbleeding single grade 1 esophageal varix. Patient ultimately referred to [facility] where he is currently followed. He has been started on diuretics for ascites and fluid retention. He no longer takes PPI therapy previous ulcer was felt to be on the basis of NSAID use. Patient currently denies any abdominal pain. He reports his weight appetite bowel movements are normal. Family history is noncontributory. He denies any prior exposure to hepatitis. Patient's family history is significant for colon cancer in his sister. Colonoscopy last performed 4 years ago. He anticipates follow-up colonoscopy in 2022. Patient presents today for surveillance of esophageal varices. Review of Systems Review of Systems: All systems reviewed & are unremarkable except as noted in HPI and below PMFSH Past Medical History Medical History (Updated 10/31/21 @ 08:24 by Alvin Rodriguez MD) Cellulitis Hyperlipidemia Hypertension Lactic acid acidosis Type 2 diabetes mellitus Surgical History Surgical History History of colonoscopy with polypectomy Family History Family History Sibling Colon cancer Father Malignant neoplasm of prostate Social History Social History Social History: The patient lives at home with his . He has 2 children. Currently works at home for [employer] due to the pandemic. Smoking status: Never smoker Alcohol intake: former Substance use: never Substance use type: does not use Living arrangements: with family Gender identity (if verbalized by the patient): Male Spiritual care concerns: No Meds Home Medications and Allergies Home Medications Medication Instructions Recorded Confirmed Type Farxiga 5 mg DAILY 04/27/20 10/19/21 History glipizide 10 mg PO BID 04/27/20 10/19/21 History metformin 1,000 mg BID 04/27/20 10/19/21 History simvastatin 40 mg DAILY 04/27/20 10/19/21 Hist
[2021-10-31 08:47] VITALS: BP 111/67; PULSE 75; RESP 20; O2SAT 97
[2021-10-31 08:57] VITALS: BP 103/72; PULSE 74; RESP 20; O2SAT 97
[2021-10-31 09:07] VITALS: BP 100/61; PULSE 68; RESP 19; O2SAT 98
== END 2021-10-31 09:25 | disposition home or self-care (01) ==
PROVIDERS: PCP Family Medicine; Visit Provider Internal Medicine Gastroenterology
PROC: 0DJ08ZZ Inspection of Upper Intestinal Tract, Via Natural or Artificial Opening Endoscopic (ICD-10-PCS; CPT 43235; principal; 2021-10-31 08:30)
DX: K74.60 Unspecified cirrhosis of liver (principal); I85.10 Secondary esophageal varices without bleeding; Z80.0 Family history of malignant neoplasm of digestive organs; I10 Essential (primary) hypertension; E78.5 Hyperlipidemia, unspecified; E11.9 Type 2 diabetes mellitus without complications; Z79.84 Long term (current) use of oral hypoglycemic drugs; E66.01 Morbid (severe) obesity due to excess calories; Z68.41 Body mass index [BMI] 40.0-44.9, adult
CPT/HCPCS: 43244; 82948; J2704; J7120

== ENCOUNTER 2022-02-20 01:10 | Day surgery (SDC) | payer BC, OTHER, SELFPAY ==
[2022-02-07 15:13] VITALS: BMI 42.7
[2022-02-20 06:20] VITALS: BP 104/57; PULSE 75; RESP 18; TEMP 36.3; O2SAT 99
--- NOTE | 2022-02-20 06:35 | WPDANESEPPF ---
Anes - Initial Pre Proc Eval Procedure: Operation Date: 02/20/22 07:30 Proposed Procedures p Esophagogastroduodenoscopy - Alvin Rodriguez MD Date/Time: 02/20/22 06:35 Surgeon: Alvin Rodriguez MD Pre Op Diagnosis: Esophageal Varices Patient Data Age: 61 Gender: M Height: 1.68 m Weight: 119 kg Last Vital Signs Temp 36.3 C L 02/20/22 06:20 Pulse 75 02/20/22 06:20 Resp 18 02/20/22 06:20 BP 104/57 L 02/20/22 06:20 Pulse Ox 99 02/20/22 06:20 O2 Del Method Room Air 02/20/22 06:20 Allergies Allergy/AdvReac Type Severity Reaction Status Date / Time No Known Drug Allergies Allergy Unknown Unknown Verified 02/20/22 06:16 Home Medications Medication Instructions Recorded Confirmed Type dapagliflozin 5 mg tablet (Farxiga) 5 mg DAILY 04/27/20 02/07/22 History glipizide 10 mg tablet 10 mg PO BID 04/27/20 02/07/22 History metformin 1,000 mg tablet 1,000 mg BID 04/27/20 02/07/22 History simvastatin 40 mg tablet 40 mg DAILY 04/27/20 02/07/22 History exenatide microspheres 2 mg/0.65 2 mg subcut WEEKLY 06/02/20 02/07/22 History mL subcutaneous pen injector (Bydureon) furosemide 20 mg tablet 20 mg PO BID 10/19/21 02/07/22 History spironolactone 50 mg tablet 100 mg PO DAILY 10/19/21 02/07/22 History Patient hx anesthesia problems: none Family hx anesthesia problems: none Results Review: All pre-operative results and documents have been reviewed as part of the pre-operative evaluation. [facility] Past Medical History Medical History (Updated 02/20/22 @ 06:36 by Chirag Urias DO) Cellulitis Cirrhosis Esophageal varices Hyperlipidemia Hypertension Lactic acid acidosis Type 2 diabetes mellitus Surgical History Surgical History History of colonoscopy with polypectomy Family History Family History Sibling Colon cancer Father Malignant neoplasm of prostate Social History Social History Social History: The patient lives at home with his . He has 2 children. Currently works at home for [employer] due to the pandemic. Smoking status: Never smoker Alcohol intake: current Drinks per week: 1 Substance use: never Substance use type: does not use Living arrangements: with family Gender identity (if verbalized by the patient): Male Spiritual care concerns: No Anes - Eval Final PreProcedure Day of Procedure 02/20/22 06:35 Patient weight: morbidly obese Heart: regular rate and rhythm Lungs: clear to auscultation Airway: Mallampati scale class II Neurological: alert and oriented Last oral intake: >/= 8 hours ASA classification: IV Emergent: no Anesthetic plan: proceed Anesthesia type and monitoring: general GIVS and standard monitoring Results Review: All pre-operative results and documents have been reviewed as part of the pre-operative evaluation. Informed Consent: The patient's anesthetic plan and its attendant risks and benefits were discussed with the patient/family/POA. Questions were solicited and answers provided to the satisfaction of the patient/family/POA.
[2022-02-20] MEDS: LACTATED RINGERS 1,000 ML 150 ML IV CONT (06:39)
[2022-02-20 06:41] LABS: Glucose Point of Care 148 mg/dl (65-105)
--- NOTE | 2022-02-20 07:21 | PM.IMHP ---
H&P: HPI History of Present Illness Date/Time: 02/20/22 07:21 Chief Complaint: Esophageal varices. Narrative: This is a 61-year-old white male patient with cirrhosis of liver felt to be secondary to alcohol abuse. Was found to have esophageal varices by EGD several months ago. These were large but not actively bleeding. Esophageal banding was performed. Patient previously had had small nonbleeding varices and so these had enlarge from previous exam. Patient did well. He has had no recent bleeding. Denies abdominal pain. He presents today for follow-up EGD and additional banding. Patient has had upper GI bleeding several years ago found to have gastric erosions superficial ulcer at that time. Patient's family history is significant his sister had colon cancer. He has a history of a colon polyp himself several years ago. Three or 4 years ago. Patient presents today for EGD. Review of Systems Review of Systems: Review of systems noncontributory. [facility] Past Medical History Medical History (Updated 02/20/22 @ 06:36 by Chirag Urias DO) Cellulitis Cirrhosis Esophageal varices Hyperlipidemia Hypertension Lactic acid acidosis Type 2 diabetes mellitus Surgical History Surgical History History of colonoscopy with polypectomy Family History Family History Sibling Colon cancer Father Malignant neoplasm of prostate Social History Social History Social History: The patient lives at home with his . He has 2 children. Currently works at home for [employer] due to the pandemic. Smoking status: Never smoker Alcohol intake: current Drinks per week: 1 Substance use: never Substance use type: does not use Living arrangements: with family Gender identity (if verbalized by the patient): Male Spiritual care concerns: No Meds Home Medications and Allergies Home Medications Medication Instructions Recorded Confirmed Type dapagliflozin 5 mg tablet (Farxiga) 5 mg DAILY 04/27/20 02/07/22 History glipizide 10 mg tablet 10 mg PO BID 04/27/20 02/07/22 History metformin 1,000 mg tablet 1,000 mg BID 04/27/20 02/07/22 History simvastatin 40 mg tablet 40 mg DAILY 04/27/20 02/07/22 History exenatide microspheres 2 mg/0.65 2 mg subcut WEEKLY 06/02/20 02/07/22 History mL subcutaneous pen injector (Bydureon) furosemide 20 mg tablet 20 mg PO BID 10/19/21 02/07/22 History spironolactone 50 mg tablet 100 mg PO DAILY 10/19/21 02/07/22 History Allergies Allergy/AdvReac Type Severity Reaction Status Date / Time No Known Drug Allergies Allergy Unknown Unknown Verified 02/20/22 06:16 Vital Signs Vital Signs - 24 hr 02/20/22 06:20 Temperature 97.3 F L Pulse Rate 75 Respiratory Rate 18 Blood Pressure 104/57 L Pulse Oximetry 99 Oxygen Delivery Room Air Exam Narrative: Physical exam reveals patient be alert. Vital signs stable. HEENT exam is unremarkable. Patient is anicteric. Lungs are clear to auscultation and percussion. Heart is without murmur or extra sounds. Abdominal exam bowel sounds are present soft nontender with no organomegaly. Digital external rectal exam is normal. Assessment and Plan Assessment and plan (1) Esophageal varices: Code(s): I85.00 - Esophageal varices without bleeding Status: Acute Assessment and Plan: Patient with large esophageal varices at time of last endoscopy. Patient was banded at that time. Patient presents today for follow-up EGD and additional banding esophageal varices. Patient continues to avoid alcohol. No active bleeding currently is followed at [facility] for management of his cirrhosis. (2) Cirrhosis: Code(s): K74.60 - Unspecified cirrhosis of liver Status: Acute Assessment and Plan: Patient with alcoh
[2022-02-20] MEDS: BENZOCAINE (*SP) 60 ML SPRAY CAN (HURRICAINE) 1 SPRAY MUCOUS MEM (07:34)
[2022-02-20 07:49] VITALS: BP 117/59; PULSE 68; RESP 25; O2SAT 96
[2022-02-20 07:59] VITALS: BP 112/67; PULSE 70; RESP 25; O2SAT 99
[2022-02-20 08:09] VITALS: BP 112/65; PULSE 64; RESP 21; O2SAT 99
== END 2022-02-20 08:18 | disposition home or self-care (01) ==
PROVIDERS: PCP Family Medicine; Visit Provider Internal Medicine Gastroenterology
PROC: 0DJ08ZZ Inspection of Upper Intestinal Tract, Via Natural or Artificial Opening Endoscopic (ICD-10-PCS; CPT 43235; principal; 2022-02-20 07:30)
DX: I85.00 Esophageal varices without bleeding (principal); K74.60 Unspecified cirrhosis of liver; I10 Essential (primary) hypertension; E78.5 Hyperlipidemia, unspecified; E11.9 Type 2 diabetes mellitus without complications; Z79.84 Long term (current) use of oral hypoglycemic drugs; E66.01 Morbid (severe) obesity due to excess calories; Z68.41 Body mass index [BMI] 40.0-44.9, adult
CPT/HCPCS: 43244; 82948; J2704; J7120

== ENCOUNTER 2022-04-30 21:12 | Observation (INO) | payer BC, OTHER, SELFPAY ==
--- NOTE | ~2022-04-30 | CT_ITS ---
EXAMINATION: CT abdomen pelvis w con DATE: 04/30/2022 22:28 INDICATION: History of hernia with pain. TECHNIQUE: Computed tomography (CT) of the abdomen and pelvis was performed with 100 cc Omnipaque 350 intravenous contrast. The dose-length product was 1401.80 mGy-cm. Automated exposure control and ite rative reconstruction technique were employed. COMPARISON: CT dated 06/02/2020 FINDINGS: There is a right para midline ventral hernia near the umbilicus containing at least partial ly obstructed small bowel. There is a fat-containing umbilical hernia. Lung bases are unremarkable. No significant pleural or pericardial effusion. Heart size normal. No si gnificant vascular abnormality. There is cirrhosis with fatty infiltration of the liver. There is gallbladder wall thickening with mi ld surrounding inflammation. No definite gallstones identified. No biliary dilatation. Trace free flu id in the pelvis. There is splenomegaly there are varices in the upper abdomen, consistent with jeanne l venous hypertension. Moderate lower thoracic and lumbar spondylosis with grade 1 spondylolisthesis at L4-5. There is mild osteoarthritis of the hips. IMPRESSION: 1. Right para midline ventral hernia adjacent to the umbilicus. The hernia contains at least partiall y obstructed small bowel. 2: Gallbladder wall thickening with possible mild surrounding inflammation. This could indicate inter stitial edema, chronic liver disease or chronic cholecystitis. 3: Cirrhosis of the liver with portal venous hypertension. Reviewed, dictated and finalized at location [facility] IMPRESSION: 1. Right para midline ventral hernia adjacent to the umbilicus. The hernia cont ains at least partially obstructed small bowel. 2: Gallbladder wall thickening with possible mild surrounding inflammation. Thi s could indicate interstitial edema, chronic liver disease or chronic cholecyst itis. 3: Cirrhosis of the liver with portal venous hypertension.
[2022-04-30 21:14] VITALS: BP 131/65; PULSE 80; RESP 18; TEMP 36.6; O2SAT 100
[2022-04-30 21:56] LABS: Appearance Urine Clear (Clear); Bilirubin Urine Negative (Negative); Blood Urine Negative (Negative); Color Urine Yellow (Yellow); Glucose Urine UA 3+ mg/dL (Negative); Ketones Urine 2+ mg/dL (Negative); Leukocyte Esterase Ur Negative LEU/UL (Negative); Nitrate Urine Negative (Negative); Protein Urine Negative (Negative); Specific Grav Ur 1.025 (1.001-1.035); Urobilinogen Urine 0.2 mg/dL (<2.0)
[2022-04-30 21:58] LABS: Basophils Percent Auto 0.4 % (0.2-1.2); Eosinophils Absolute Auto 0.2 K/mm3 (0-0.3); Eosinophils Percent Auto 2.1 % (0-4.4); Hematocrit 45.7 % (42.0-52.0); Hemoglobin 15.3 g/dL (14.0-18.0); Immature Granulocyte Absolute 0.03 K/mm3 (0.00-0.031); Immature Granulocyte Percent A 0.4 % (0-0.5); Immature Platelet Fraction Pct 8.2 % (0.9-11.2); Lymphocytes Absolute Auto 1.59 K/mm3 (0.9-3.2); Lymphocytes Percent Auto 22.7 % (18.3-44.2); Mean Corpuscular HGB Conc 33.5 g/dl (32-36); Mean Corpuscular Hemoglobin 30.1 pg (26-34); Mean Platelet Volume 11.8 fl (7.4-10.4); Monocytes Absolute Auto 0.7 K/mm3 (0.1-0.6); Monocytes Percent Auto 10.6 % (2.6-8.5); Mucus Urine Rare /lpf; Neutrophils Absolute Auto 4.5 K/mm3 (1.3-6.7); Neutrophils Percent Auto 63.8 % (45.5-73.1); Platelet Count Result 95 k/mm3 (150-375); Red Blood Count 5.08 M/mm3 (4.6-6.20); Red Cell Distribution Width 14.7 % (11.5-14.5); Squamous Epithelial Cell Urine Rare /hpf (Few); WBC Urine 0-3 /hpf
[2022-04-30 21:59] LABS: Add Urine Microscopic? YES
[2022-04-30 22:05] LABS: Alanine Aminotransferase 30 U/L (6-50); Albumin Level 4.4 g/dL (3.5-5.1); Alkaline Phosphatase 68 U/L (38-126); Anion Gap 9 mmol/L (8-16); Aspartate Amino Transferase 32 U/L (17-59); Bilirubin,Total 1.2 mg/dL (0.2-1.3); Blood Urea Nitrogen 14 mg/dL (9-20); Calcium 8.9 mg/dL (8.4-10.2); Carbon Dioxide 25 mmol/L (22-30); Chloride 101 mmol/L (98-107); Estimated CRCL calculation 102 ml/min; Estimated Glomerular Filt Rate > 60; Glucose 171 mg/dL (65-110); Lipase 404 U/L (23-300); Potassium 3.9 mmol/L (3.4-5.0); Sodium 135 mmol/L (137-145)
[2022-04-30 22:06] LABS: Platelet Estimate Decreased (Adequate)
[2022-04-30 22:07] LABS: Ovalocytes 1+ (NORMAL); Schistocytes None Seen (NORMAL)
[2022-04-30 22:08] LABS: Stomatocytes 1+ (NORMAL)
--- NOTE | 2022-04-30 22:40 | ED.ABDPAIN ---
HPI - Abdominal Pain General Chief Complaint: Abdominal Pain Stated Complaint: Hernia hurting? , constipation Time Seen by Provider: 04/30/22 21:27 History of Present Illness HPI narrative: 61-year-old male with history of hernia presents with 1 day of abdominal pain where his hernia is, describing as a burning sensation. He does also have a history of constipation but does have some diarrhea earlier. No fevers or chills. Related Data Home Medications Medication Instructions Recorded Confirmed dapagliflozin 5 mg tablet (Farxiga) 5 mg DAILY 04/27/20 02/07/22 glipizide 10 mg tablet 10 mg PO BID 04/27/20 02/07/22 metformin 1,000 mg tablet 1,000 mg BID 04/27/20 02/07/22 simvastatin 40 mg tablet 40 mg DAILY 04/27/20 02/07/22 exenatide microspheres 2 mg/0.65 2 mg subcut WEEKLY 06/02/20 02/07/22 mL subcutaneous pen injector ([employer]) furosemide 20 mg tablet 20 mg PO BID 10/19/21 02/07/22 spironolactone 50 mg tablet 100 mg PO DAILY 10/19/21 02/07/22 Allergies Allergy/AdvReac Type Severity Reaction Status Date / Time No Known Drug Allergies Allergy Unknown Unknown Verified 04/30/22 21:18 Review of Systems Review of Systems: CONST: No fever. HEENT: No sore throat C/V: No chest pain RESP: No cough GI: Reports abdominal pain, diarrhea : No dysuria. M/S: No joint pain. SKIN: No rash. NEURO: [No headache or focal numbness or weakness] PSYCH: [No depression] [facility] Past Medical History Medical History Cellulitis Cirrhosis Esophageal varices Hyperlipidemia Hypertension Lactic acid acidosis Type 2 diabetes mellitus Surgical History Surgical History History of colonoscopy with polypectomy Family History Family History Sibling Colon cancer Father Malignant neoplasm of prostate Social History Social History Social History: The patient lives at home with his . He has 2 children. Currently works at home for [employer] due to the pandemic. Smoking status: Never smoker Alcohol intake: current Drinks per week: 1 Substance use: never Substance use type: does not use Gender identity (if verbalized by the patient): Male Spiritual care concerns: No Exam Narrative: EXAMINATION OF ORGAN SYSTEMS/BODY AREAS: Constitutional: Vital signs per nursing GENERAL:[No acute distress, non-toxic appearing.] HEAD: Normal with no signs of head trauma. EYES: EOMI, conjunctiva normal ENT: Hearing grossly intact LUNGS: Nonlabored breathing. HEART: [Regular rate and rhythm] ABD: [Soft], [very minimally tender to palpation periumbilical, hernia is soft] EXT: Normal range of motion SKIN: [No rashes or lesions.] NEURO: [Alert and oriented x 3. No gross focal sensory or strength deficits.] PSYCH: Normal affect Course Vital Signs Vital signs: Vital Signs Temperature 97.8 F 04/30/22 21:14 Pulse Rate 80 04/30/22 21:14 Respiratory Rate 18 04/30/22 21:14 Blood Pressure 131/65 04/30/22 21:14 Pulse Oximetry 100 04/30/22 21:14 Oxygen Delivery Room Air 04/30/22 21:14 Temperature 97.4 F L 05/01/22 01:05 Pulse Rate 74 05/01/22 01:05 Respiratory Rate 17 05/01/22 01:05 Blood Pressure 112/65 05/01/22 01:05 Pulse Oximetry 98 05/01/22 01:05 Oxygen Delivery Room Air 04/30/22 21:14 MDM - Abdominal Pain MDM Narrative Medical decision making narrative: Electronic medical record was reviewed. Patient presented to the ED with complaint of [abdominal pain and constipation]. Vitals [were within acceptable limits]. Physical exam revealed [soft hernia that is very minimally tender to palpation in umbilical abdomen without any overlying skin changes]. Based on the patient's history and physical exam, my differential includes but is not limited to I will obtain labs and imaging to ru
--- NOTE | 2022-04-30 22:55 | PC.NURSE ---
Assumed care of patient at this time.
[2022-04-30 22:57] VITALS: BP 110/63; PULSE 68; RESP 18; TEMP 36.5; O2SAT 98
[2022-05-01 01:05] VITALS: BP 112/65; PULSE 74; RESP 17; TEMP 36.3; O2SAT 98
--- NOTE | 2022-05-01 02:33 | ADMGEN ---
This patient, Tim Silva, was admitted to Medical Room 261-01. Patient/family oriented to hospital policies and general routines including ID bracelet, bed and alarms, visiting hours, pain management, procedures, bathroom and other care routines, personal items, smoking policy, room service/diet, and visiting hours. Information on how to activate the Rapid Response Team has been discussed. Patient/Family are encouraged to report perceived risks to care and to ask questions if they do not understand what they are told or what they should do.
[2022-05-01 02:41] LABS: Influenza A QL RT-PCR Negative (Negative); Influenza B QL RT-PCR Negative (Negative); SARS-CoV-2 RNA PCR Negative
[2022-05-01 02:44] VITALS: BP 90/46; PULSE 72; RESP 16; TEMP 36.9; O2SAT 100
[2022-05-01 02:49] VITALS: BMI 42.3
--- NOTE | 2022-05-01 03:02 | PM.IMHP ---
H&P: HPI History of Present Illness Date/Time: 05/01/22 03:02 Chief Complaint: Abdominal pain, diarrhea Narrative: Patient is a 61-year-old male past medical history of type 2 diabetes, hyperlipidemia, liver cirrhosis with history of distant alcohol abuse presents to ED with complaints of abdominal pain. Patient states this morning he had multiple episodes of diarrhea and subsequently noticed his umbilical hernia increasing in size. Was unable to reduce hernia himself and with abdominal pain came to the ED for further evaluation. Symptom onset was earlier today. He has never had these issues before. The umbilical ventral hernia has been longstanding, no history of abdominal surgery. In the ED: Labs within normal limits, CT abdomen shows partial small-bowel obstruction. Dr. Fink surgeon was notified who would like to observe patient and see in consultation tomorrow. Patient is not nauseous and no NG tube was placed. Patient admitted for observation for partial small-bowel obstruction. Review of Systems Review of Systems: Constitutional: No Fever, No Chills, No Night Sweats, No Fatigue, No Malaise ENT/Mouth: No Hearing Changes, No Ear Pain, No Nasal Congestion, No Sinus Pain, No Hoarseness, No sore throat, No Rhinorrhea, No Swallowing Difficulty Eyes: No Eye Pain, No Redness, No Vision Changes Cardiovascular: No Chest Pain, No Palpitations, No Dyspnea on Exertion, No Orthopnea, No Claudication, No Edema Respiratory: No Cough, No Sputum, No Wheezing, No Shortness of Breath Gastrointestinal: Endorses diarrhea, abdominal pain, burping, worsening umbilical hernia. Denies flatulence. Genitourinary: No Dysuria, No Urinary Frequency, No Hematuria, No Urinary Incontinence, No Urgency Musculoskeletal: No Arthralgias, No Myalgias, No Joint Swelling, No Joint Stiffness, No Back Pain Skin: No Skin Lesions, No Pruritis, No Hair Changes Neuro: No Weakness, No Numbness, No Paresthesias, No Loss of Consciousness, No Syncope, No Dizziness, No Headache Psych: No Anxiety/Panic, No Depression, No Insomnia Heme: No Bruising, No Bleeding Lymph: No Adenopathy Endocrine: No Polyuria, No Polydipsia, No Temperature Intolerance PMF Past Medical History Medical History (Updated 05/01/22 @ 03:13 by Asim Chambers DO) Cellulitis Cirrhosis Esophageal varices Hyperlipidemia Lactic acid acidosis Type 2 diabetes mellitus Surgical History Surgical History History of colonoscopy with polypectomy Family History Family History Sibling Colon cancer Father Malignant neoplasm of prostate Social History Social History Social History: The patient lives at home with his . He has 2 children. Currently works at home for [employer] due to the pandemic. Smoking status: Never smoker Alcohol intake: current Drinks per week: 1 Substance use: never Substance use type: does not use Lack of Transportation: No Lack of Food: Never True Current Housing: I Have Housing Concerned About Future Housing: No Difficulty Paying Gas/Electric Bills: No Difficulty Paying for Meds: No Currently Unemployed: No Education: High School Diploma/GED Difficulty w/ Childcare or Family Care: No Gender identity (if verbalized by the patient): Male Spiritual care concerns: No Meds Home Medications and Allergies Home Medications Medication Instructions Recorded Confirmed Type dapagliflozin 5 mg tablet (Farxiga) 5 mg DAILY 04/27/20 05/01/22 History glipizide 10 mg tablet 10 mg PO BID 04/27/20 05/01/22 History metformin 1,000 mg tablet 1,000 mg BID 04/27/20 05/01/22 History simvastatin 40 mg tablet 40 mg DAILY 04/27/20 05/01/22 History exenatide microspheres 2 mg/0.65 2 mg subcut WEEKLY 06/02/20 05/01/22 History mL subcutaneous pen injector (Bydur
[2022-05-01] MEDS: SODIUM CHLORIDE 0.9% IV 1,000 ML 125 ML IV CONT ×2 (03:41→12:11)
[2022-05-01 06:20] LABS: Glucose Point of Care 138 mg/dl (65-105)
[2022-05-01 06:27] VITALS: BP 106/51; PULSE 76; RESP 16; TEMP 36.5; O2SAT 95
[2022-05-01 07:28] LABS: Hemoglobin A1C 9.2 % (<5.7)
[2022-05-01 08:44] LABS: INR 1.2
--- NOTE | 2022-05-01 09:12 | PM.IMPN ---
Progress Note: A&P Assessment and Plan (1) Partial small bowel obstruction: Code(s): K56.600 - Partial intestinal obstruction, unspecified as to cause Status: Acute Plan # partial small-bowel obstruction # umbilical hernia -patient has not passed any flatulence, still burping, will continue supportive care -CT abdomen pelvis consistent with partial small-bowel obstruction -holding off NG tube as patient is not nauseous or vomiting, if symptoms change then may place NG tube -slightly hypotensive likely secondary to poor p.o. intake and diarrhea, continue IV fluids normal saline 125 cc/hour -as needed Zofran available, pain control p.r.n. morphine -labs reviewed, within normal limits -general surgery Dr. Fink consulted # other chronic conditions -liver cirrhosis secondary to history of alcohol-use: Holding diuretics Lasix and spironolactone with diarrhea. Follows at [facility] -history of esophageal varices grade 1, history of gastric ulcer, s/p banding -insulin-dependent type 2 diabetes: Bydureon, Farxiga, glipizide, metformin, checking hemoglobin A1c, Accu-Cheks q.6 hours, hypoglycemia protocol, sliding scale insulin -hyperlipidemia: Simvastatin Diet: NPO except ice chips DVT prophylaxis: SCDs Code status: Full code Disposition: Observation, pending clinical course home in 1-3 days, possible surgical intervention Subjective Date/time seen: 05/01/22 09:12 Interval history: He feels better now. No abdominal pain, nausea, or vomiting. He is belching and passing gas now. Exam Narrative: - GENERAL: Pleasant morbidly obese male. - EYES: EOMI. Anicteric. - HENT: Moist mucous membranes. - LUNGS: Clear to auscultation bilaterally, no wheezing, rhonchi, or rales. - CARDIOVASCULAR: Regular rate and rhythm. - ABDOMEN: Soft, nontender, umbilical hernia present - EXTREMITIES: No edema. Peripheral pulses 2+. Non-tender. - NEUROLOGIC: No focal neurological deficits. CN II-XII grossly intact. - PSYCHIATRIC: Awake, Alert and oriented x 3. Appropriate mood and affect. - SKIN: No rashes or lesions. Warm. - LYMPH: No cervical lymphadenopathy. Objective Data Vital Signs Vital Signs: Vital Signs - 24 hr 04/30/22 21:14 04/30/22 22:57 05/01/22 01:05 Temperature 97.8 F 97.7 F 97.4 F L Pulse Rate 80 68 74 Respiratory Rate 18 18 17 Blood Pressure 131/65 110/63 112/65 Pulse Oximetry 100 98 98 Oxygen Delivery Room Air 05/01/22 02:44 05/01/22 06:27 Temperature 98.5 F 97.7 F Pulse Rate 72 76 Respiratory Rate 16 16 Blood Pressure 90/46 L 106/51 L Pulse Oximetry 100 95 Oxygen Delivery Intake/Output Intake/Output: Intake & Output 04/28/22 04/29/22 04/30/22 05/01/22 23:59 23:59 23:59 23:59 Intake Total 10 Balance 10 Meds/Results Medications: Active Medications Generic Name Dose Route Start Last Admin Trade Name Freq PRN Reason Stop Dose Admin Dextrose 12.5 gm 05/01/22 05:07 Dextrose 50% 25 Gm/50 Ml Syringe IV PUSH PRN PRN Hypoglycemia Protocol Glucagon 1 mg 05/01/22 05:07 Glucagon For Inj 1 Mg Vial IM PRN PRN Hypoglycemia Protocol Glucose 15 gm 05/01/22 05:07 Glucose Oral Gel 15 Gm Of Glucse In 37.5 Gm Tube PO PRN PRN Hypoglycemia Protocol Sodium Chloride 1,000 mls @ 125 mls/hr 05/01/22 03:00 05/01/22 03:41 Normal Saline Iv IV CONT 125 mls/hr .Q8H RHODA Administration Dextrose 1,000 mls @ 100 mls/hr 05/01/22 05:07 Dextrose 5% 1,000 Ml IVPB PRN PRN Hypoglycemia Protocol Insulin Aspart 2 - 5 units 05/01/22 06:00 05/01/22 08:04 Insulin Aspart (*Bkc) 100 Units/Ml SUB-Q Not Given Q6HR RHODA Protocol Morphine Sulfate 2 mg 05/01/22 03:00 Morphine Sulfate (*Crx) 2 Mg/Ml Inj IV PUSH Q4H PRN Pain Rated 7-10 Naloxone HCl 0.1 mg 05/01/22 03:00 Naloxone Hcl 0.4 Mg/Ml Vial IV PUSH Q2M PRN Opiate Reversal Ondansetron HCl 4 mg 05/01/22 03:00 Ondansetr
--- NOTE | 2022-05-01 09:31 | PM.CNGS ---
Assessment and Plan Assessment and plan (1) Periumbilical hernia: Code(s): K42.9 - Umbilical hernia without obstruction or gangrene Status: Acute Assessment and Plan: The hernia is soft and reducible on exam this morning. He is not having any further abdominal pain and is passing flatus. He has had this hernia for about 10 years and has been asymptomatic prior to this episode. There is no evidence of incarceration or strangulation and no indication for urgent surgical repair at this time. He has multiple co-morbidities that increase his risks of having surgery, including his uncontrolled diabetes, liver cirrhosis, and obesity. Discussed with the patient that we would recommend trying to advance his diet and have him follow-up with Dr. Fink to discuss surgical repair as an outpatient. This will allow time for him to be medically optimized prior to proceeding with surgery. I discussed signs of incarceration/strangulation and when to return to the ER. We also discussed how to attempt gentle manual reduction at home. The patient understands and agrees to this plan. (2) Partial small bowel obstruction: Code(s): K56.600 - Partial intestinal obstruction, unspecified as to cause Status: Acute Assessment and Plan: CT suggested partial small bowel obstruction secondary to the periumbilical hernia. This appears to have resolved as the hernia is soft and reducible. Will try advancing his diet and continue to monitor. (3) Cirrhosis: Code(s): K74.60 - Unspecified cirrhosis of liver Status: Acute Assessment and Plan: Schedule to f/u with Hepatology at [facility] next month. Coags normal. CT shows evidence of liver cirrhosis with portal venous hypertension. (4) Portal venous hypertension: Code(s): K76.6 - Portal hypertension Status: Acute (5) Esophageal varices: Code(s): I85.00 - Esophageal varices without bleeding Status: Acute Assessment and Plan: Scheduled for another follow-up EGD next month. Most recent EGD was in February and he had 2 bands placed. (6) Morbid obesity with BMI of 40.0-44.9, adult: Code(s): E66.01 - Morbid (severe) obesity due to excess calories; Z68.41 - Body mass index [BMI] 40.0-44.9, adult Status: Acute Assessment and Plan: Encouraged diet and lifestyle modifications to promote weight loss, especially in planning for surgery. (7) Type 2 diabetes mellitus: Qualifiers: Diabetes mellitus terminal clerk insulin use: without residential use Diabetes mellitus complication status: without complication Qualified Code(s): E11.9 - Type 2 diabetes mellitus without complications Code(s): E11.9 - Type 2 diabetes mellitus without complications Status: Chronic Assessment and Plan: Uncontrolled with a Hgb of A1C 9.2 on this admission. Recommended working on better glycemic control prior to proceeding with surgery as an outpatient. Plan I have discussed the patient's case and plan of care with Dr. Fink. Thank you for allowing us to see the patient in consultation and we will continue to follow along with you. History of Present Illness Consult details Consult date: 05/01/22 Reason for consult: other (Ventral hernia, small bowel obstruction) Requesting physician: Emerita Ferreira MD Narrative: This is a 61-year-old obese man with a history of type 2 diabetes mellitus and liver cirrhosis, who presented to the emergency department last night with complaints of periumbilical abdominal pain x 1 day. He woke up yesterday and had a few episodes of diarrhea in the morning. His also reports he was carrying heaving items such as a treadmill and [place] decor up their stairs in the morning. In the early afternoon, he began to notice a mild burning periumbilical pain. He reports having an umbilical hernia for about 10 years that has been completely asymptomatic prior to this episode. He also noticed a larger bulge in the are
[2022-05-01 12:19] LABS: Glucose Point of Care 151 mg/dl (65-105)
[2022-05-01 14:30] VITALS: BP 96/46; PULSE 64; RESP 14; TEMP 36.4; O2SAT 98
--- NOTE | 2022-05-01 15:46 | PM.DS ---
DS: Admitting Diagnosis Discharge Date 05/01/2022 1546 Admitting Diagnosis Partial bowel obstruction Umbilical hernia DS: Discharge Diagnosis Discharge Diagnosis (1) Partial small bowel obstruction: Code(s): K56.600 - Partial intestinal obstruction, unspecified as to cause Status: Acute (2) Periumbilical hernia: Code(s): K42.9 - Umbilical hernia without obstruction or gangrene Status: Acute (3) Type 2 diabetes mellitus: Qualifiers: Diabetes mellitus complication status: without complication Diabetes mellitus terminal worker insulin use: without terminal worker use Qualified Code(s): E11.9 - Type 2 diabetes mellitus without complications Code(s): E11.9 - Type 2 diabetes mellitus without complications Status: Chronic DS: Summary Hospital Course Reason for hospitalization: Abdominal pain, diarrhea Hospital Course: Tim Silva is a 61-year-old male with type 2 diabetes, hyperlipidemia, liver cirrhosis with history of distant alcohol abuse, and grade 1 esophageal varices. He presented to the ED with complaints of abdominal pain.? He reported the morning of admission he had multiple episodes of diarrhea and subsequently noticed his umbilical hernia increasing in size.? He was unable to reduce his hernia himself and had abdominal pain, prompting him to come to the ED for further evaluation.? He has never had these issues before.? The umbilical ventral hernia has been longstanding with no history of prior abdominal surgery. In the ED:? Labs within normal limits, CT abdomen shows partial small-bowel obstruction. Dr. Fink surgeon was consulted in the ED and recommended patient be observed overnight.? He denied nauseous and no NG tube was placed in the ED.? The patient was admitted for observation for partial small-bowel obstruction and surgical evaluation of umbilical hernia. He was made NPO and treated with IV fluids and analgesics. Surgery was consulted. The patient's abd pain resolved and he had no further complaints of diarrhea or nausea. His hernia was easy to reduce the following morning. The patient's diet was advanced as tolerated and he was able to eat solid foods without symptoms. His A1c was noted to be 9.2% this admission and was increased from his prior level 6 months ago. He reported medication compliance, but also endorsed not checking his blood sugar frequently as he should. He denied diet changes or new medications. He has a scheduled visit with his PCP early May. He was continued on current medications and Farxiga was increased to 10 mg PO daily. He was counseled on diet, exercise and weight loss. He will follow up with PCP as scheduled and General sugery in the future when blood sugars are more controlled. He was discharged home with his in stable condition. Status at Discharge Cognitive/behavioral status at discharge: AAOx4. pleasant. Functional status at discharge: independent ambulation Overall status at discharge: patient is back to baseline Time Spent with Patient Time attestation: Total time spent providing and/or coordinating discharge services: Time spent: Greater than 30 minutes Exam Narrative: GENERAL:?No acute distress. Pleasant morbidly obese male lying in bed. HEENT: normocephalic. PERRL. EOMI. Anicteric. mucous membranes moist. NECK: grossly normal. LUNGS: Clear to auscultation bilaterally, no wheezing, rhonchi, or rales. RR unlabored. CARDIOVASCULAR: Regular rate and rhythm, normal S1 and S2. No murmurs. Palpable and equal pulses bilaterally. ABDOMEN: Soft, obese, nontender, umbilical hernia reduces. EXTREMITIES: No edema. Non-tender. Grossly normal ROM. NEUROLOGIC: No focal neurological deficits. CN II-XII grossly intact. PSYCHIATRIC: Awake, Alert and oriented x 3. Appropriate mood and affect. SKIN: No rashes or lesions. Warm. DS: Data Data Completed and Pending Labs on day of discharge: Labs from last 24 hours 05/01/22 05/01/22
== END 2022-05-01 16:43 | disposition home or self-care (01) ==
LOC: ANHED 05-01 01:30 → ANH2MED 05-01 15:45
PROVIDERS: Emergency Medicine; Surgery; Admitting Provider Student in an Organized Health Care Education/Training Program; Emergency Provider Emergency Medicine; PCP Family Medicine; Visit Provider Chiropractor
DX: K42.9 Umbilical hernia without obstruction or gangrene (principal); K56.690 Other partial intestinal obstruction; K74.60 Unspecified cirrhosis of liver; K76.6 Portal hypertension; I85.00 Esophageal varices without bleeding; E66.01 Morbid (severe) obesity due to excess calories; E11.9 Type 2 diabetes mellitus without complications; R19.7 Diarrhea, unspecified; K59.00 Constipation, unspecified; E78.5 Hyperlipidemia, unspecified; I10 Essential (primary) hypertension; F10.90 Alcohol use, unspecified, uncomplicated; Z68.41 Body mass index [BMI] 40.0-44.9, adult; Z79.84 Long term (current) use of oral hypoglycemic drugs; Z20.822 Contact with and (suspected) exposure to COVID-19; Z79.899 Other long term (current) drug therapy
CPT/HCPCS: 36415; 74177; 80053; 81001; 82948; 83036; 83690; 85025; 85055; 85610; 87636; 96360; 96361; 99285; G0378; J7030; Q9967

== ENCOUNTER 2022-05-22 00:30 | Day surgery (SDC) | payer BC, OTHER, SELFPAY ==
[2022-05-11 14:35] VITALS: BMI 42.0
[2022-05-22 07:55] VITALS: BP 103/63; PULSE 79; RESP 20; TEMP 36.1; O2SAT 98
[2022-05-22] MEDS: LACTATED RINGERS 1,000 ML 150 ML IV CONT (08:06)
[2022-05-22 08:07] LABS: Glucose Point of Care 195 mg/dl (65-105)
--- NOTE | 2022-05-22 08:15 | PM.HPGS ---
History of Present Illness History of Present Illness Consent: Risks, benefits, and alternatives have been discussed and questions answered. Patient agrees to proceed with procedure. Chief complaint: esophageal varices Narrative: Tim Silva is a 61 year old male Presents for EGD. Patient has a history of cirrhosis felt to be secondary to alcohol abuse. Currently followed at [facility]. Patient found to have esophageal varices in October of this year. Most recent banding episode in February. Patient presents today for follow-up EGD for additional banding of esophageal varices. He continues to follow its [facility] for his cirrhosis. Patient reports his current weight appetite bowel movements are normal. He denies abdominal pain. He has had no bleeding. Review of Systems Review of Systems: Review of systems noncontributory. [facility] Past Medical History Medical History (Updated 05/22/22 @ 08:17 by Alvin Rodriguez MD) Cellulitis Cirrhosis Esophageal varices Hyperlipidemia Lactic acid acidosis Type 2 diabetes mellitus Surgical History Surgical History History of colonoscopy with polypectomy History of esophagogastroduodenoscopy (EGD) Multiple previous EGD's for esophageal varices. Hx of banding of varices. Family History Family History Sibling Colon cancer Father Malignant neoplasm of prostate Social History Social History Social History: The patient lives at home with his . He has 2 children. Currently works at home for [employer] due to the pandemic. Smoking status: Never smoker Alcohol intake: current Drinks per week: 1 Substance use: never Substance use type: does not use Lack of Transportation: No Lack of Food: Never True Current Housing: I Have Housing Concerned About Future Housing: No Difficulty Paying Gas/Electric Bills: No Difficulty Paying for Meds: No Currently Unemployed: No Education: High School Diploma/GED Difficulty w/ Childcare or Family Care: No Living arrangements: with family Gender identity (if verbalized by the patient): Male Spiritual care concerns: No Meds Home Medications and Allergies Home Medications Medication Instructions Recorded Confirmed Type glipizide 10 mg tablet 10 mg PO BID 04/27/20 05/11/22 History metformin 1,000 mg tablet 1,000 mg BID 04/27/20 05/11/22 History simvastatin 40 mg tablet 40 mg DAILY 04/27/20 05/11/22 History exenatide microspheres 2 mg/0.65 2 mg subcut WEEKLY 06/02/20 05/11/22 History mL subcutaneous pen injector (Bydureon) furosemide 20 mg tablet 20 mg PO BID 10/19/21 05/11/22 History spironolactone 50 mg tablet 100 mg PO DAILY 10/19/21 05/11/22 History dapagliflozin 5 mg tablet (Farxiga) 10 mg PO DAILY 30 days #60 tabs 05/01/22 05/11/22 Rx Allergies Allergy/AdvReac Type Severity Reaction Status Date / Time No Known Drug Allergies Allergy Unknown Unknown Verified 05/22/22 07:54 Vital Signs Vital Signs - 24 hr 05/22/22 07:55 Temperature 97 F L Pulse Rate 79 Respiratory Rate 20 Blood Pressure 103/63 Pulse Oximetry 98 Oxygen Delivery Room Air Exam Narrative: Physical exam reveals patient be alert. Vital signs stable. HEENT exam is unremarkable. Patient is anicteric. Lungs are clear to auscultation and percussion. Heart is without murmur or extra sounds. Abdomen is obese. Bowel sounds are present soft nontender no organomegaly. Umbilical hernia is noted. Extremities without clubbing cyanosis or edema. Digital external rectal exam is normal. Assessment and Plan Assessment and plan (1) Cirrhosis: Code(s): K74.60 - Unspecified cirrhosis of liver Status: Acute Assessment and Plan: Patient with cirrhosis felt to be from alcohol abuse. Plan for continued alcoh
--- NOTE | 2022-05-22 08:48 | WPDANESEPPF ---
Anes - Initial Pre Proc Eval Procedure: Operation Date: 05/22/22 09:00 Proposed Procedures p Esophagogastroduodenoscopy - Alvin Rodriguez MD Date/Time: 05/22/22 08:48 Surgeon: Alvin Rodriguez MD Pre Op Diagnosis: esophageal varices Patient Data Age: 61 Gender: M Height: 1.68 m Weight: 117 kg Last Vital Signs Temp 97 F L 05/22/22 07:55 Pulse 79 05/22/22 07:55 Resp 20 05/22/22 07:55 BP 103/63 05/22/22 07:55 Pulse Ox 98 05/22/22 07:55 O2 Del Method Room Air 05/22/22 07:55 Allergies Allergy/AdvReac Type Severity Reaction Status Date / Time No Known Drug Allergies Allergy Unknown Unknown Verified 05/22/22 07:54 Home Medications Medication Instructions Recorded Confirmed Type glipizide 10 mg tablet 10 mg PO BID 04/27/20 05/11/22 History metformin 1,000 mg tablet 1,000 mg BID 04/27/20 05/11/22 History simvastatin 40 mg tablet 40 mg DAILY 04/27/20 05/11/22 History exenatide microspheres 2 mg/0.65 2 mg subcut WEEKLY 06/02/20 05/11/22 History mL subcutaneous pen injector (Bydureon) furosemide 20 mg tablet 20 mg PO BID 10/19/21 05/11/22 History spironolactone 50 mg tablet 100 mg PO DAILY 10/19/21 05/11/22 History dapagliflozin 5 mg tablet (Farxiga) 10 mg PO DAILY 30 days #60 tabs 05/01/22 05/11/22 Rx Laboratory Tests 05/22/22 08:04 POC Capillary Glucose 195 mg/dl H mg/dl (65-105) Patient hx anesthesia problems: none Family hx anesthesia problems: none Results Review: All pre-operative results and documents have been reviewed as part of the pre-operative evaluation. [facility] Past Medical History Medical History (Updated 05/22/22 @ 08:17 by Alvin Rodriguez MD) Cellulitis Cirrhosis Esophageal varices Hyperlipidemia Lactic acid acidosis Type 2 diabetes mellitus Surgical History Surgical History History of colonoscopy with polypectomy History of esophagogastroduodenoscopy (EGD) Multiple previous EGD's for esophageal varices. Hx of banding of varices. Family History Family History Sibling Colon cancer Father Malignant neoplasm of prostate Social History Social History Social History: The patient lives at home with his . He has 2 children. Currently works at home for [employer] due to the pandemic. Smoking status: Never smoker Alcohol intake: current Drinks per week: 1 Substance use: never Substance use type: does not use Lack of Transportation: No Lack of Food: Never True Current Housing: I Have Housing Concerned About Future Housing: No Difficulty Paying Gas/Electric Bills: No Difficulty Paying for Meds: No Currently Unemployed: No Education: High School Diploma/GED Difficulty w/ Childcare or Family Care: No Living arrangements: with family Gender identity (if verbalized by the patient): Male Spiritual care concerns: No Anes - Eval Final PreProcedure Day of Procedure 05/22/22 08:48 Patient weight: morbidly obese Heart: regular rate and rhythm Lungs: clear to auscultation Airway: Mallampati scale class III Neurological: alert and oriented Last oral intake: >/= 8 hours ASA classification: III Emergent: no Anesthetic plan: proceed Anesthesia type and monitoring: general GIVS and standard monitoring Results Review: All pre-operative results and documents have been reviewed as part of the pre-operative evaluation. Informed Consent: The patient's anesthetic plan and its attendant risks and benefits were discussed with the patient/family/POA. Questions were solicited and answers provided to the satisfaction of the patient/family/POA.
[2022-05-22 09:03] VITALS: BP 115/70; PULSE 78; RESP 17; O2SAT 95
[2022-05-22 09:13] VITALS: BP 116/74; PULSE 82; RESP 18; O2SAT 99
[2022-05-22 09:23] VITALS: BP 115/87; PULSE 76; RESP 22; O2SAT 99
== END 2022-05-22 09:30 | disposition home or self-care (01) ==
PROVIDERS: PCP Family Medicine; Visit Provider Internal Medicine Gastroenterology
PROC: 0DJ08ZZ Inspection of Upper Intestinal Tract, Via Natural or Artificial Opening Endoscopic (ICD-10-PCS; CPT 43235; principal; 2022-05-22 09:00)
DX: K74.60 Unspecified cirrhosis of liver (principal); I85.10 Secondary esophageal varices without bleeding; Q39.4 Esophageal web; E11.9 Type 2 diabetes mellitus without complications; E78.5 Hyperlipidemia, unspecified; Z79.84 Long term (current) use of oral hypoglycemic drugs; K42.9 Umbilical hernia without obstruction or gangrene; Z80.0 Family history of malignant neoplasm of digestive organs; E66.01 Morbid (severe) obesity due to excess calories; Z68.41 Body mass index [BMI] 40.0-44.9, adult
CPT/HCPCS: 43235; 82948; J2704; J7120

== ENCOUNTER 2023-06-01 02:52 | Day surgery (SDC) | payer BC, OTHER, SELFPAY ==
[2023-05-17 08:55] VITALS: BMI 40.4
--- NOTE | 2023-05-30 08:46 | SUR.PREOP ---
Patient called regarding upcoming procedure. Reviewed preop instructions, appointment times, and procedure prep.
--- NOTE | 2023-05-31 09:34 | WPDANESEPPF ---
Anes - Initial Pre Proc Eval Procedure: Operation Date: 06/01/23 09:30 Proposed Procedures p Esophagogastroduodenoscopy & Colonoscopy - Alvin Rodriguez MD Date/Time: 05/31/23 09:34 Surgeon: Alvin Rodriguez MD Pre Op Diagnosis: hx colon polyps,Nonbleeding Esophageal varices Patient Data Age: 62 Gender: M Height: 1.68 m Weight: 113.5 kg Allergies Allergy/AdvReac Type Severity Reaction Status Date / Time No Known Drug Allergies Allergy Unknown Unknown Verified 06/01/23 08:26 Home Medications Medication Instructions Recorded Confirmed Type glipizide 10 mg tablet 10 mg PO BID 04/27/20 05/31/23 History furosemide 40 mg tablet 40 mg PO DAILY 11/13/22 05/31/23 History metformin 1,000 mg tablet 1,000 mg PO BID #180 tabs 11/13/22 05/31/23 Rx simvastatin 40 mg tablet 40 mg PO DAILY #90 tabs 11/13/22 05/31/23 Rx spironolactone 100 mg tablet 100 mg PO DAILY 11/13/22 05/31/23 History tirzepatide 7.5 mg/0.5 mL 7.5 mg (0.5 mL) subcut WEEKLY #2 mL 05/18/23 06/01/23 Rx subcutaneous pen injector (Mounjaro) dapagliflozin propanediol 10 mg 10 mg PO DAILY #90 tabs 05/31/23 06/01/23 Rx tablet (Farxiga) Patient hx anesthesia problems: none Family hx anesthesia problems: none Results Review: All pre-operative results and documents have been reviewed as part of the pre-operative evaluation. [facility] Past Medical History Medical History Anemia Atherosclerotic heart disease of [place] coronary artery without angina pectoris Cellulitis Cirrhosis Esophageal varices Family hx of colon cancer Hyperlipidemia Periumbilical hernia Personal history of colonic polyps Thrombocytopenia Type 2 diabetes mellitus Surgical History Surgical History History of colonoscopy with polypectomy History of esophagogastroduodenoscopy (EGD) Multiple previous EGD's for esophageal varices. Hx of banding of varices. Family History Family History Sibling Colon cancer Father Malignant neoplasm of prostate Social History Social History Social History: The patient lives at home with his . He has 2 children. Currently works at home for [employer] due to the pandemic. Smoking status: Never smoker Alcohol intake: current Drinks per week: 1 Substance use: never Substance use type: does not use Lack of Transportation: No Lack of Food: Never True Current Housing: I Have Housing Concerned About Future Housing: No Difficulty Paying Gas/Electric Bills: No Difficulty Paying for Meds: No Currently Unemployed: No Education: High School Diploma/GED Difficulty w/ Childcare or Family Care: No Living arrangements: with family Occupation/Education: occupation Gender identity (if verbalized by the patient): Male Sexual Orientation (if Verbalized by the Patient): Straight or Heterosexual Spiritual care concerns: No Anes - Eval Final PreProcedure Day of Procedure 05/31/23 09:34 Patient weight: morbidly obese Heart: regular rate and rhythm Lungs: clear to auscultation Airway: Mallampati scale class II Neurological: alert and oriented Last oral intake: >/= 8 hours ASA classification: IV Emergent: no Anesthetic plan: proceed Anesthesia type and monitoring: general GIVS and standard monitoring Results Review: All pre-operative results and documents have been reviewed as part of the pre-operative evaluation. Informed Consent: The patient's anesthetic plan and its attendant risks and benefits were discussed with the patient/family/POA. Questions were solicited and answers provided to the satisfaction of the patient/family/POA.
[2023-06-01 08:28] VITALS: BP 107/63; PULSE 75; RESP 20; TEMP 36.3; O2SAT 98
[2023-06-01] MEDS: LACTATED RINGERS 1,000 ML 150 ML IV CONT (08:36)
[2023-06-01 08:40] LABS: Glucose Point of Care 121 mg/dl (65-105)
--- NOTE | 2023-06-01 08:59 | PM.HPGS ---
History of Present Illness History of Present Illness Consent: Risks, benefits, and alternatives have been discussed and questions answered. Patient agrees to proceed with procedure. Chief complaint: hx colon polyps,Nonbleeding Esophageal varices Narrative: Tim Silva is a 62 year old male Presents for both colonoscopy and EGD. Patient known to have cirrhosis of liver. This felt to be cryptogenic. Patient has required banding of esophageal varices in the past. Most recent EGD 1 year ago. Plan for surveillance EGD at this time. Patient denies any heartburn he has had no bleeding. Currently abstinent from alcohol. He is on diuretics because of ascites. Additionally patient has a history of colon polyps. Both in 2013 in 2018. Was found to have adenomatous colonoscopy polyps. Plan for surveillance colonoscopy now and at 5 year intervals. Patient also has a family history of colon cancer. Review of Systems Review of Systems: Review of systems noncontributory. [facility] Past Medical History Medical History Anemia Atherosclerotic heart disease of [place] coronary artery without angina pectoris Cellulitis Cirrhosis Esophageal varices Family hx of colon cancer Hyperlipidemia Periumbilical hernia Personal history of colonic polyps Thrombocytopenia Type 2 diabetes mellitus Surgical History Surgical History History of colonoscopy with polypectomy History of esophagogastroduodenoscopy (EGD) Multiple previous EGD's for esophageal varices. Hx of banding of varices. Family History Family History Sibling Colon cancer Father Malignant neoplasm of prostate Social History Social History Social History: The patient lives at home with his . He has 2 children. Currently works at home for [employer] due to the pandemic. Smoking status: Never smoker Alcohol intake: current Drinks per week: 1 Substance use: never Substance use type: does not use Lack of Transportation: No Lack of Food: Never True Current Housing: I Have Housing Concerned About Future Housing: No Difficulty Paying Gas/Electric Bills: No Difficulty Paying for Meds: No Currently Unemployed: No Education: High School Diploma/GED Difficulty w/ Childcare or Family Care: No Living arrangements: with family Occupation/Education: occupation Gender identity (if verbalized by the patient): Male Sexual Orientation (if Verbalized by the Patient): Straight or Heterosexual Spiritual care concerns: No Meds Home Medications and Allergies Home Medications Medication Instructions Recorded Confirmed Type glipizide 10 mg tablet 10 mg PO BID 04/27/20 05/31/23 History furosemide 40 mg tablet 40 mg PO DAILY 11/13/22 05/31/23 History metformin 1,000 mg tablet 1,000 mg PO BID #180 tabs 11/13/22 05/31/23 Rx simvastatin 40 mg tablet 40 mg PO DAILY #90 tabs 11/13/22 05/31/23 Rx spironolactone 100 mg tablet 100 mg PO DAILY 11/13/22 05/31/23 History tirzepatide 7.5 mg/0.5 mL 7.5 mg (0.5 mL) subcut WEEKLY #2 mL 05/18/23 06/01/23 Rx subcutaneous pen injector (Mounjaro) dapagliflozin propanediol 10 mg 10 mg PO DAILY #90 tabs 05/31/23 06/01/23 Rx tablet (Farxiga) Allergies Allergy/AdvReac Type Severity Reaction Status Date / Time No Known Drug Allergies Allergy Unknown Unknown Verified 06/01/23 08:26 Vital Signs Vital Signs - 24 hr 06/01/23 08:28 Temperature 97.3 F L Pulse Rate 75 Respiratory Rate 20 Blood Pressure 107/63 Pulse Oximetry 98 Oxygen Delivery Room Air Exam Narrative: Physical exam reveals patient to be alert. Vital signs stable. HEENT exam is unremarkable. Patient is anicteric. Lungs are clear to auscultation and percussion. Heart is without murmur or extra sounds. Abdomen
--- NOTE | 2023-06-01 09:23 | SUR.OPER ---
EGD started at 913 and ended at 917. Colonoscopy began at 925.
[2023-06-01 09:48] VITALS: BP 99/42; PULSE 83; RESP 15; O2SAT 96
[2023-06-01 09:58] VITALS: BP 104/86; PULSE 82; RESP 20; O2SAT 100
[2023-06-01 10:08] VITALS: BP 108/62; PULSE 76; RESP 28; O2SAT 100
== END 2023-06-01 10:15 | disposition home or self-care (01) ==
PROVIDERS: PCP Family Medicine; Visit Provider Internal Medicine Gastroenterology
PROC: 0DJ08ZZ Inspection of Upper Intestinal Tract, Via Natural or Artificial Opening Endoscopic (ICD-10-PCS; CPT 43235; principal; 2023-06-01 09:30)
DX: Z12.11 Encounter for screening for malignant neoplasm of colon (principal); D12.2 Benign neoplasm of ascending colon; K64.8 Other hemorrhoids; K25.3 Acute gastric ulcer without hemorrhage or perforation; K74.60 Unspecified cirrhosis of liver; I85.10 Secondary esophageal varices without bleeding; I25.10 Atherosclerotic heart disease of native coronary artery without angina pectoris; D64.9 Anemia, unspecified; Z80.0 Family history of malignant neoplasm of digestive organs; E78.5 Hyperlipidemia, unspecified; E11.9 Type 2 diabetes mellitus without complications; Z79.84 Long term (current) use of oral hypoglycemic drugs; Z79.85 Long-term (current) use of injectable non-insulin antidiabetic drugs; E66.01 Morbid (severe) obesity due to excess calories; Z68.41 Body mass index [BMI] 40.0-44.9, adult
CPT/HCPCS: 45385; 43239; 82948; 87081; 88305; J2704; J7120

== ENCOUNTER 2024-09-08 00:55 | Day surgery (SDC) | payer BC, OTHER, SELFPAY ==
[2024-08-28 14:12] VITALS: BMI 37.1
--- OUTSIDE RECORDS SUMMARY | 2024-09-08 00:59 | XMS_ITS | Clinical Summary ---
Author Organization [facility] Address [address] [place] [address] Care Team Providers Care It Risk Analyst Name Role Phone Bj Vasquez MD Primary Care Provider [phone] Leesa Esposito RN Unavailable Unavailable Izzy Ngo LAYUP WORKER-DISTRIBUTED GENERATION PROJECT MANAGER Unavailable [phone] Source Comments [facility],non-owned Affiliates and Associated Physician Practices is amultiple site organization consisting of ambulatory clinics and hospital sitesin [place], [place], [place] and [place]. This disclosure is being madepursuant to the Care Everywhere program and may not contain all information available regarding this patient. Last updated 18.[facility] RegistryLove Allergies No known active allergies Medications * Be aware that medications may not be up to date on this document. Alwaysverify current medications with the patient. Medication Sig Dispensed Refills Start Date End Date Status glipiZIDE (GLUCOTROL) 10 MG tablet Take 1 (one) tablet by mouth 2 times daily, before breakfast and supper 04/14/2020 Active metFORMIN (GLUCOPHAGE) 1000 MG tablet Take 1 (one) tablet by mouth 2 times daily with morning and evening meal 04/17/2020 Active simvastatin (ZOCOR) 40 MG tablet Take 1 (one) tablet by mouth at bedtime Active dapagliflozin propanediol (Farxiga) 10 MG tablet Take 1 (one) tablet by mouth every morning Active omeprazole (PriLOSEC) 20 MG capsule Take 1 (one) capsule by mouth daily before breakfast Active tirzepatide (Mounjaro) 10 MG/0.5ML injection Inject 12 mg subcutaneously every 7 days Active spironolactone (Aldactone) 100 MG tablet Take 1 (one) tablet by mouth once daily 90 tablet 3 08/11/2024 6 Active furosemide (Lasix) 40 MG tablet Take 1 (one) tablet by mouth once daily 90 tablet 3 08/11/2024 6 Active spironolactone (Aldactone) 100 MG tablet Take 1 tablet by mouth once daily 90 tablet 1 03/25/2024 5 Discontinue d(Reorder) furosemide (Lasix) 40 MG tablet Take 1 tablet by mouth once daily 90 tablet 1 03/25/2024 5 Discontinue d(Reorder) Active Problems Problem Noted Date Diagnosed Date 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 Encounters Date Type Department Care Team Description 08/11/2024 12:30 PM BRYOLOGIST Office Visit [facility] - GI [address] [place] [address] Izzy Ngo APRN-CNP Cryptogenic cirrhosis of liver (Primary Dx); Metabolic syndrome; Esophageal varices without bleeding, unspecified esophageal varices type 08/11/2024 10:12 AM BRYOLOGIST - 08/11/2024 11:59 PM BRYOLOGIST Hospital Encounter [facility] OP [facility] [address] [place] [address] Izzy Ngo APRN-CNP Discharge Disposition: Home or Self Care 08/11/2024 8:45 AM BRYOLOGIST - 08/11/2024 10:11 AM BRYOLOGIST Hospital Encounter [facility] [address] [place] [address] Izzy Ngo APRN-CNP Discharge Disposition: Home or Self Care 08/11/2024 Travel from Last 3 Months Immunizations Name Administration Dates Next Due Covid Foneshow primary monoval ent 12+ yr 0.3mL Purple cap 09/02/2020,08/12/2020 Social History Tobacco Use Types Packs/Day Years Used Date Smoking Tobacco: Never Smokeless Tobacco: Never Tobacco Cessation:Counseling Given: Not Answered Alcohol Use Standard Drinks/Week Comments Yes 0 (1 standard drink = 0.6 oz pur e alcohol) 1 beer a week, social Sex and Gender Information Value Date Recorded Sex Assigned at Not on file Gender Identity Not on file Sexual Orientation Not on file Last Filed Vital Signs Vital Sign Reading Time Taken Comments Blood Pressure 109/56 08/11/2024 11:25 AM BRYOLOGIST Pulse 76 08/11/2024 11:25 AM BRYOLOGIST Temperature 36.7 C (98.1 F) 08/11/2024 11:25 AM BRYOLOGIST Respiratory Rate 18 07/05/2023 8:09 AM BRYOLOGIST Oxygen Saturation 98% 08/11/2024 11:25 AM BRYOLOGIST Inhaled Oxygen Concentration - - Weight 112.5 kg (248 lb) 08/11/2024 11:25 AM BRYOLOGIST Height 167.6 cm (5' 6 ) 08/11/2024 11:25 AM BRYOLOGIST Body Mass Index 40.03 08/11/2024 11:25 AM BRYOLOGIST Plan of Treatment Upcoming Encounters Date Type Department Care Team (Late st Contact Info) Description 02/12/2025 8:00 AM CDT Appointment [facility] [address] [place] [id number] Izzy Ngo, LAYUP WORKER-DISTRIBUTED GENERATION PROJECT MANAGER [address] [place] [address] [address] [place] [address] 02/12/2025 10:00 AM CDT Office Visit [facility] - [address] [place] [address], [facility] [place] [id number] Izzy Ngo, LAYUP WORKER-DISTRIBUTED GENERATION PROJECT MANAGER [address] [facility] [address] [place] [address] Health Maintenance Due Date Last Done Comments COLOGUARD (AGES 45-75) - COLON CA SCREENING 1960 COLON MONITORING 1960 COLONOSCOPY - COLON CA SCREENING 1960 CT COLONOGRAPHY - COLON CA SCREENING 1960 Colorectal Cancer Screening 1960 FIT - COLON CA SCREENING 1960 FLEX SIG - COLON CA SCREENING 1960 HIV SCREENING 09/20/1975 DTAP/TDAP/TD VACCINES (1 - Tdap) 09/20/1979 PNEUMOCOCCAL VACCINE 50+ (1 of 2 - PCV) 09/20/1979 ZOSTER VACCINE (1 of 2) 2010 HEPATITIS B VACCINE (1 of 3 - Risk 3-dose series) 2020 Respiratory Syncytial Virus (RSV) Vaccine Pt: or over 60 yrs (1 - Risk 60-74 years 1-dose series) 2020 COVID-19 VACCINE ( - season) 2024 05/21/2022, 10/29/2021, 09/02/2020, Additional history exists INFLUENZA VACCINE (#1) 2024 2, 04/22/2021, 04/10/2020, Additional history exists DEPRESSION SCREENING 06/11/2024 SCREENING FOR DIABETES 08/12/2027 5, 01/28/2024, 07/02/2023, Additional history exists HEPATITIS C SCREENING Completed 07/29/2020 HIB VACCINE Aged Out No longer eligi ble based on patient's age to complete this topic HPV VACCINE Aged Out No longer eligi ble based on patient's age to complete this topic MENINGOCOCCAL (Group B) VACCINE SHARED DECISION-MAKING Aged Out No longer eligible based on patient's age to complete this topic MENINGOCOCCAL GROUPS A/C/Y/W VACCINE Aged Out No longer eligible based on patient's age to complete this topic Goals Goal Patient Goal Type Associated Problems Recent Progress Patient-Stated? Author Medication Management General On track( 11:30 AM BRYOLOGIST) No Ermias Desir, RN Note: Expected end date: Interventions: Take all medications as prescribed Let your doctor know right away about any changes in your medications Make sure to request a refill of your medication at least one week prior to your last dose Safety General On track( 11:31 AM BRYOLOGIST) No Leesa Esposito, RN Note: Expected end date: ongoing Interventions: Your nurse will assess your risk for falls/injury each visit Use appropriate and safe transfer methods Make sure appropriate safety devices are available and within reach Be aware of medications that could predispose you to falling Wear non-skid/rubber sole footwear Wear glasses/hearing aid Keep personal items within easy reach Keep walking paths clutter free and clear Maintain an unobstructed path to the bathroom Procedures Procedure Name Priority Date/Time Associated Diagnosis Comments PT-INR [facility] Routine 08/11/2024 10:53 AM BRYOLOGIST Cryptogenic cirrhosis of liver ALPHA FETOPROTEIN BLOOD TUMOR MARKER Routine 08/11/2024 10:53 AM BRYOLOGIST Cryptogenic cirrhosis of liver COMPREHENSIVE METABOLIC PANEL Routine 08/11/2024 10:53 AM BRYOLOGIST Cryptogenic cirrhosis of liver CBC W AUTO DIFFERENTIAL Routine 08/11/2024 10:53 AM BRYOLOGIST Cryptogenic cirrhosis of liver US ABDOMEN LIMITED Routine 08/11/2024 9: 33 AM BRYOLOGIST Cryptogenic cirrhosis of liver HEPATITIS C ANTIBODY Routine 07/29/2020 9:41 AM BRYOLOGIST Cirrhosis of liver with ascites, unspecified hepatic cirrhosis type from Last 3 Months or Most Recently Relevant to Health Maintenance Results * PT-INR [facility] (08/11/2024 10:53 AM BRYOLOGIST) PT 14.8 12.1 - 14.8 Seconds 08/11/2024 11:35 AM BRYOLOGIST [facility] INR 1.2 See Comment 08/11/2024 11:35 AM BRYOLOGIST [facility] Comment:The suggested therap eutic range for standard coumadin (warfarin) therapy is an INR of 2.0-3.0. For high-risk patients (Mechanical Mitral Valve Prosthesis, etc.), the suggested prophylactic therapeutic range is an INR of 2.5-3.5. Blood BLOOD SPECIMEN / Unknown Lab Venipuncture / Unknown 08/11/2024 10:53 AM BRYOLOGIST 08/11/2024 11:03 AM BRYOLOGIST Izzy Ngo LAYUP WORKER-DISTRIBUTED GENERATION PROJECT MANAGER LAB - COAGU LATION ORDERABLES [facility] [address] [place] [phone], [facility] [phone] * ALPHA FETOPROTEIN BLOOD TUMOR MARKER (08/11/2024 10:53 AM BRYOLOGIST) Pathologist [facility] Alpha-Fetoprote in Tumor Marker 2.2 <=8.3 ng/mL 08/11/2024 12:01 PM [facility] Comment: AFP values will vary depending on testing procedure used. Results are not comparable across different methods. AFP values obtained by [facility] using an Briceno Alinity Immunoassay. Blood BLOOD SPECIMEN / Unknown Lab Venipuncture / Unknown 08/11/2024 10:53 AM BRYOLOGIST 08/11/2024 11:09 AM BRYOLOGIST Izzy Ngo LAYUP WORKER-DISTRIBUTED GENERATION PROJECT MANAGER LAB - CHEMI STRY ORDERABLES [facility] [address] [place] [phone], [facility] [phone] * (ABNORMAL) CBC WITH DIFFERENTIAL (08/11/2024 10:53 AM BRYOLOGIST) [facility] WBC 3.3(L) 4.0 - 10.7 x10E9/L 08/11/2024 11:39 AM [facility] RBC Count 4.29(L) 4.30 - 5.80 x10E12/L 08/11/2024 11:39 AM [facility] Hemoglobin 12.6(L) 13.3 - 17.5 g/dL 08/11/2024 11:39 AM [facility] Hematocrit 37.6(L) 38.7 - 51.1 % 08/11/2024 11:39 AM [facility] MCV 87.6 80.0 - 98.0 fL 08/11/2024 11:39 AM [facility] MCH 29.4 26.7 - 33.6 pg 08/11/2024 11:39 AM [facility] MCHC 33.5 31.7 - 36.3 g/dL 08/11/2024 11:39 AM [facility] RDW-CV 15.1(H) 11.3 - 14.8 % 08/11/2024 11:39 AM [facility] Platelet Count 69(L) 150 - 420 x10E9/L 08/11/2024 11:39 AM [facility] MPV 11.4 7.8 - 11.4 fL 08/11/2024 11:39 AM [facility] Neutrophil % 59.5 41.0 - 74.0 % 08/11/2024 11:39 AM [facility] Lymphocyte % 24.3 17.0 - 47.0 % 08/11/2024 11:39 AM [facility] Monocyte % 11.7(H) 3.0 - 11.0 % 08/11/2024 11:39 AM [facility] Eosinophil % 3.9 0.0 - 7.0 % 08/11/2024 11:39 AM [facility] Basophil % 0.3 0.0 - 1.6 % 08/11/2024 11:39 AM [facility] Immature Granulocytes % 0.3 0.0 - 1.0 % 08/11/2024 11:39 AM [facility] Neutrophil Absolute 1.98 1.60 - 7.50 x10E9/L 08/11/2024 11:39 AM [facility] Lymphocyte Absolute 0.81(L) 1.00 - 4.40 x10E9/L 08/11/2024 11:39 AM [facility] Monocyte Absolute 0.39 0.15 - 1.00 x10E9/L 08/11/2024 11:39 AM [facility] Eosinophil Absolute 0.13 0.00 - 0.60 x10E9/L 08/11/2024 11:39 AM [facility] Basophil Absolute 0.01 0.00 - 0.13 x10E9/L 08/11/2024 11:39 AM [facility] Blood BLOOD SPECIMEN / Unknown Lab Venipuncture / Unknown 08/11/2024 10:53 AM BRYOLOGIST 08/11/2024 11:10 AM [facility] Izzy Ngo LAYUP WORKER-DISTRIBUTED GENERATION PROJECT MANAGER LAB - HEMAT OLOGY ORDERABLES [facility] [address] [place] [address], [facility] [phone] * (ABNORMAL) COMPREHENSIVE METABOLIC PANEL (08/11/2024 10:53 AM [facility]) BUN 9 7 - 26 mg/dL 08/11/2024 11:42 AM [facility] Creatinine 0.72 0.71 - 1.16 mg/dL 08/11/2024 11:42 AM [facility] Sodium 143 136 - 145 mmol/L 08/11/2024 11:42 AM [facility] Potassium 3.5 3.5 - 4.5 mmol/L 08/11/2024 11:42 AM [facility] Chloride 111(H) 98 - 107 mmol/L 08/11/2024 11:42 AM [facility] CO2 21(L) 22 - 29 mmol/L 08/11/2024 11:42 AM [facility] Glucose 97 70 - 99 mg/dL 08/11/2024 11:42 AM [facility] Calcium 8.4 8.4 - 10.2 mg/dL 08/11/2024 11:42 AM [facility] Protein Total 6.5 6.0 - 8.3 g/dL 08/11/2024 11:42 AM [facility] Albumin 3.2(L) 3.4 - 5.0 g/dL 08/11/2024 11:42 AM [facility] Bilirubin Total 1.3(H) 0.2 - 1.2 mg/dL 08/11/2024 11:42 AM [facility] Alkaline Phosphatase 62 40 - 150 U/L 08/11/2024 11:42 AM [facility] ALT 22 5 - 55 U/L 08/11/2024 11:42 AM [facility] AST 24 5 - 34 U/L 08/11/2024 11:42 AM [facility] Anion Gap 11 6 - 16 08/11/2024 11:42 AM [facility] BUN/Creatinine Ratio 13 7 - 23 08/11/2024 11:42 AM [facility] Osmolality Calculated 295 275 - 295 mOsm/kg 08/11/2024 11:42 AM [facility] Albumin/Globulin Ratio 1.0(L) 1.1 - 2.3 08/11/2024 11:42 AM [facility] eGFR by CKD-EPI >90 >=90 mL/min/1.7 3 m2 08/11/2024 11:42 AM BRYOLOGIST [facility] Blood BLOOD SPECIMEN / Unknown Lab Venipuncture / Unknown 08/11/2024 10:53 AM BRYOLOGIST 08/11/2024 11:10 AM BRYOLOGIST Izzy Ngo LAYUP WORKER-DISTRIBUTED GENERATION PROJECT MANAGER LAB - CHEMI STRY ORDERABLES [facility] [address] [place] [address], [facility] [phone] * US Abdomen Limited (08/11/2024 9:33 AM BRYOLOGIST) Anatomical Region Laterality Modality Abdomen Ultrasound 08/11/2024 9:3 4 AM BRYOLOGIST Impressions 08/11/2024 10:48 AM BRYOLOGIST Impression: Hepatic cirrhosis with portal hypertension Liver Visualization Score A: No or minimal limitations. US-1 Negative. Repeat surveillance US in 6 months. Report drafted by Antonio Werner MD (resident). > Dictated by Antonio Werner MD (Health And Fitness Professor) 08/11/2024 9:34 AM I, Patrice Enriquez MD have personally reviewed and interpreted this examination/study. > Interpreting Provider: Patrice Enriquez MD on 08/11/2024 10:48 AM Narrative 08/11/2024 10:48 AM BRYOLOGIST PROCEDURE: US ABDOMEN LIMITED, DATE/TIME OF EXAM: 08/11/2024 9:33 AM, LOCATION [facility] INDICATION: K74.69: Cryptogenic cirrhosis of liver (HCC) ADDITIONAL CLINICAL INFORMATION: Ordering Provider Reason For Exam: HCC screening COMPARISON: Ultrasound abdomen limited 01/28/2024 Findings Liver Visualization Score: No or minimal limitations in liver visualization Liver Morphology: The liver has a coarse echotexture and nodular surface. The left lobe is enlarged. Liver Observations: None. Main Portal Vein: Color Doppler evaluation demonstrates patency of the main portal vein. Hepatic Veins: Color Doppler evaluation demonstrates patency of the hepatic veins. Bile Ducts: The common bile duct is nondilated, measuring 5 mm. No intrahepatic or extrahepatic biliary dilation. Gallbladder: No gallstones or pericholecystic fluid is seen.. Sonographic Carter's sign is negative. Ascites: Small volume ascites is present. Spleen: The spleen measures 15 cm in length. Pancreas: The visible pancreas is normal in echogenicity. Right Kidney: The right kidney measures 10.8 cm in length. Limited views of the right kidney reveal no evidence of nephrolithiasis or hydronephrosis. No discrete mass identified. Procedure Note Patrice Enriquez MD - 08/11/2024 PROCEDURE: US ABDOMEN LIMITED, DATE/TIME OF EXAM: 08/11/2024 9:33 AM, LOCATION [facility] INDICATION: K74.69: Cryptogenic cirrhosis of liver (HCC) ADDITIONAL CLINICAL INFORMATION: Ordering Provider Reason For Exam: HCC screening COMPARISON: Ultrasound abdomen limited 01/28/2024 Findings Liver Visualization Score: No or minimal limitations in liver visualization Liver Morphology: The liver has a coarse echotexture and nodular surface. The left lobe is enlarged. Liver Observations: None. Main Portal Vein: Color Doppler evaluation demonstrates patency of the main portal vein. Hepatic Veins: Color Doppler evaluation demonstrates patency of the hepatic veins. Bile Ducts: The common bile duct is nondilated, measuring 5 mm. No intrahepatic or extrahepatic biliary dilation. Gallbladder: No gallstones or pericholecystic fluid is seen.. Sonographic Carter'ssign is negative. Ascites: Small volume ascites is present. Spleen: The spleen measures 15 cm in length. Pancreas: The visible pancreas is normal in echogenicity. Right Kidney: The right kidney measures 10.8 cm in length. Limited views of the right kidney reveal no evidence of nephrolithiasis or hydronephrosis. No discrete mass identified. Impression: Hepatic cirrhosis with portal hypertension Liver Visualization Score A: No or minimal limitations. US-1 Negative. Repeat surveillance US in 6 months. Report drafted by Antonio Werner MD (resident). > Dictated by Antonio Werner MD (Health And Fitness Professor) 08/11/2024 9:34AM I, Patrice Enriquez MD have personally reviewed and interpreted this examination/study. > Interpreting Provider: Patrice Enriquez MD on 08/11/2024 10:48 AM Izzy Ngo LAYUP WORKER-DISTRIBUTED GENERATION PROJECT MANAGER US ORDERABL ES * HEPATITIS C ANTIBODY (07/29/2020 9:41 AM BRYOLOGIST) Hepatitis C Antibody Non-react [place] Non-reac tive 07/29/2020 11:58 AM BRYOLOGIST [facility] Comment:Hepatitis C Antibody screen indicates no serologic evidence of past or current infection with Hepatitis C Virus. Patients with unexplained liver disease who are immunocompromised or suspected of having acute Hepatitis C infection may benefit from Nucleic Acid Test ([facility]) for Hepatitis C Viral RNA to confirm Hepatitis C status. Blood BLOOD SPECIMEN / Unknown Lab Venipuncture / Unknown 07/29/2020 9:41 AM BRYOLOGIST 07/29/2020 11:07 AM BRYOLOGIST Lobito Cueto MD LAB - CHEMISTR Y ORDERABLES [facility] [address] [place] [address], [facility] [phone] from Last 3 Months or Most Recently Relevant to Health Maintenance Care Teams It Risk Analyst Relationship Specialty Start Date End Date Bj Vasquez MD PCP - General 10/08/17 Leesa Esposito, RN Registered Nurse Hepatology 08/11/24 Izzy Ngo, LAYUP WORKER-DISTRIBUTED GENERATION PROJECT MANAGER [address] [place] [address] Nurse Practitioner Hepatology 08/11/24
--- OUTSIDE RECORDS SUMMARY | 2024-09-08 00:59 | XMS_ITS | Continuity of Care Document ---
Author Organization [facility] Address [address] [place] [address] [address] [place] [address] Phone Care Team Providers Care Malt House Supervisor Name Role Phone Neff OD, Alvin Unavailable Unavailable Procedures Procedure Date Eye Exam & Treatment Refraction Advance Directives Directive Yes / No Effective Date File Name No Information Encounters Encounter Description Practice Location Reason(s) For Visit Diagnoses Date Provider Providers Copied on Encounter [facility], [id number] [place] [address] [address], [place], [place], [id number], [place] tel:[phone] [facility] No Information 9-200 8 Neff OD Alvin. [address] , [address], [place], [address], [place]. tel:[phone] Family History Family Member Type Diagnosis Age At Onset No Information Payers Payer name Insurance type Covered alliance party ID Authormichellea sara(s) [facility] CI [id number] Social History Type Description Quantity Date Captured Comments Sex Male Smoking Status No Information Chief Complaint And Reason For Visit No Information Reason For Referral Reason For Referral No Information History Of Present Illness Encounter Date Complaint History Of Prese nt Illness No Information Functional Status Date Functional Assessmen t No Information Instructions Date Instruction Additional Infor mation No Information Assessments Type Assessment Date No Information Patient Care Teams Name Effective Dates (start - stop) Status Members No Information
[2024-09-08 10:55] VITALS: BP 116/63; PULSE 77; RESP 20; TEMP 36.1; O2SAT 99
[2024-09-08] MEDS: LACTATED RINGERS 1,000 ML 150 ML IV CONT (11:07)
[2024-09-08 11:10] LABS: Glucose Point of Care 141 mg/dl (65-105)
--- NOTE | 2024-09-08 11:11 | WPDANESEPPF ---
Anes - Initial Pre Proc Eval Procedure: Operation Date: 09/08/24 12:15 Proposed Procedures p Esophagogastroduodenoscopy - Joesph Hussein MD Date/Time: 09/08/24 11:11 Surgeon: Joesph Hussein MD Pre Op Diagnosis: Secondary esophageal varices without bleeding, Oth Patient Data Age: 63 Gender: M Height: 1.68 m Weight: 106.3 kg Last Vital Signs Temp 97.0 F L 09/08/24 10:55 Pulse 77 09/08/24 10:55 Resp 20 09/08/24 10:55 BP 116/63 09/08/24 10:55 Pulse Ox 99 09/08/24 10:55 O2 Del Method Room Air 09/08/24 10:55 Allergies Allergy/AdvReac Type Severity Reaction Status Date / Time No Known Drug Allergies Allergy Unknown Unknown Verified 09/08/24 10:52 Home Medications ?Medication ?Instructions ?Recorded ?Confirmed ?Type furosemide 40 mg tablet 40 mg PO DAILY 11/13/22 09/08/24 History spironolactone 100 mg tablet 100 mg PO DAILY 11/13/22 09/08/24 History omeprazole 20 mg capsule,delayed 20 mg PO .DAILY #30 caps 06/01/23 09/08/24 Rx release dapagliflozin propanediol 10 mg 10 mg PO DAILY #90 tabs 03/25/24 09/08/24 Rx tablet (Farxiga) glipizide 10 mg tablet 10 mg PO BID #180 tabs 03/25/24 09/08/24 Rx simvastatin 40 mg tablet 40 mg PO DAILY #90 tabs 04/19/24 09/08/24 Rx tirzepatide 12.5 mg/0.5 mL 12.5 mg (0.5 mL) subcut WEEKLY #2 05/18/24 09/08/24 Rx subcutaneous pen injector mL (Mounjaro) metformin 1,000 mg tablet 1,000 mg PO BID #180 tabs 07/22/24 09/08/24 Rx Laboratory Tests 09/08/24 10:59 POC Capillary Glucose 141 H mg/dl (65-105) Patient hx anesthesia problems: none Family hx anesthesia problems: none Results Review: All pre-operative results and documents have been reviewed as part of the pre-operative evaluation. REPLACED BY [facility] Past Medical History Medical History Personal history of colonic polyps Atherosclerotic heart disease of [place] coronary artery without angina pectoris Family hx of colon cancer Periumbilical hernia Esophageal varices Cirrhosis Hyperlipidemia Thrombocytopenia Anemia Cellulitis Type 2 diabetes mellitus Surgical History Surgical History History of esophagogastroduodenoscopy (EGD) Multiple previous EGD's for esophageal varices. Hx of banding of varices. History of colonoscopy with polypectomy Family History Family History Sibling Colon cancer Father Malignant neoplasm of prostate Social History Social History Social History: The patient lives at home with his . He has 2 children. Currently works at home for [employer] due to the pandemic. Smoking status: Never smoker Alcohol intake: current Drinks per week: 1 Substance use: never Substance use type: does not use Lack of Transportation: No Lack of Food: Never True Current Housing: I Have Housing Concerned About Future Housing: No Difficulty Paying Gas/Electric Bills: No Difficulty Paying for Meds: No Currently Unemployed: No Education: High School Diploma/GED Difficulty w/ Childcare or Family Care: No Living arrangements: with family Occupation/Education: occupation Gender identity (if verbalized by the patient): Male Sexual Orientation (if Verbalized by the Patient): Straight or Heterosexual Spiritual care concerns: No Anes - Eval Final PreProcedure Day of Procedure 09/08/24 11:11 Patient weight: obese Lungs: normal air movement Airway: Mallampati scale class II and special considerations (Missing L upper tooth. ) Neurological: alert and oriented Last oral intake: >/= 8 hours ASA classification: III Emergent: no Anesthetic plan: proceed Anesthesia type and monitoring: general GIVS and standard monitoring Results Review: All pre-operative results and documents have been reviewed as part of the pre-operative evaluation. HTN, preDM, hx of varices, suspect cirrhosis per pt. Informed Consent: The patient's anesthetic plan and its attendant risks and benefits were discussed with the patient/family/POA. Questions were solicited and answers provided to the satisfaction of the patient/family/POA.
--- NOTE | 2024-09-08 11:28 | P.HP_ITS ---
History of Present Illness History of Present Illness Consent: Risks, benefits, and alternatives have been discussed and questions answered. Patient agrees to proceed with procedure. 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 Patient known to have cirrhosis of liver. Patient has required banding of esophageal varices in the past. Most recent EGD 05/2023 only small size, no new issues. He is seeing tester [employer] packages at [facility]. Review of Systems Review of Systems: All systems reviewed & are unremarkable except as noted in HPI and below PMFSH Past Medical History Medical History Personal history of colonic polyps Atherosclerotic heart disease of [place] coronary artery without angina pectoris Family hx of colon cancer Periumbilical hernia Esophageal varices Cirrhosis Hyperlipidemia Thrombocytopenia Anemia Cellulitis Type 2 diabetes mellitus Surgical History Surgical History History of esophagogastroduodenoscopy (EGD) Multiple previous EGD's for esophageal varices. Hx of banding of varices. History of colonoscopy with polypectomy Family History Family History Sibling Colon cancer Father Malignant neoplasm of prostate Social History Social History Social History: The patient lives at home with his . He has 2 children. Currently works at home for [employer] due to the pandemic. Smoking status: Never smoker Alcohol intake: current Drinks per week: 1 Substance use: never Substance use type: does not use Lack of Transportation: No Lack of Food: Never True Current Housing: I Have Housing Concerned About Future Housing: No Difficulty Paying Gas/Electric Bills: No Difficulty Paying for Meds: No Currently Unemployed: No Education: High School Diploma/GED Difficulty w/ Childcare or Family Care: No Living arrangements: with family Occupation/Education: occupation Gender identity (if verbalized by the patient): Male Sexual Orientation (if Verbalized by the Patient): Straight or Heterosexual Spiritual care concerns: No Meds Home Medications and Allergies Home Medications ?Medication ?Instructions ?Recorded ?Confirmed ?Type furosemide 40 mg tablet 40 mg PO DAILY 11/13/22 09/08/24 History spironolactone 100 mg tablet 100 mg PO DAILY 11/13/22 09/08/24 History omeprazole 20 mg capsule,delayed 20 mg PO .DAILY #30 caps 06/01/23 09/08/24 Rx release dapagliflozin propanediol 10 mg 10 mg PO DAILY #90 tabs 03/25/24 09/08/24 Rx tablet (Farxiga) glipizide 10 mg tablet 10 mg PO BID #180 tabs 03/25/24 09/08/24 Rx simvastatin 40 mg tablet 40 mg PO DAILY #90 tabs 04/19/24 09/08/24 Rx tirzepatide 12.5 mg/0.5 mL 12.5 mg (0.5 mL) subcut WEEKLY #2 05/18/24 09/08/24 Rx subcutaneous pen injector mL (Mounjaro) metformin 1,000 mg tablet 1,000 mg PO BID #180 tabs 07/22/24 09/08/24 Rx Allergies Allergy/AdvReac Type Severity Reaction Status Date / Time No Known Drug Allergies Allergy Unknown Unknown Verified 09/08/24 10:52 Vital Signs Vital Signs - 24 hr 09/08/24 10:55 Temperature 97.0 F L Pulse Rate 77 Respiratory Rate 20 Blood Pressure 116/63 Pulse Oximetry 99 Oxygen Delivery Room Air Exam Const: General: comfortable and no acute distress HENMT: Face/Nose/Sinus: Normal nares present Eyes: General: appearance normal, both eyes and all related structures Neck: Neck: no JVD Resp: Auscultation: clear to auscultation bilaterally Cardio: Rate: regular rate Rhythm: regular rhythm GI: Inspection: non-distended GI Palp: Yes Soft to palpation Skin: General skin exam: normal color Neuro: Speech: normal speech Extrem: General: normal to inspection Psych: Mental Status: mental status grossly normal Assessment and Plan Assessment and plan (1) Cirrhosis: Qualifiers: Hepatic cirrhosis type: other cirrhosis Qualified Code(s): K74.69 - Other cirrhosis of liver Code(s): K74.60 - Unspecified cirrhosis of liver Status: Acute Assessment and Plan: egd to assess size of varices it is compensated now follow-up with [employer] at [facility] (2) Esophageal varices: Qualifiers: Esophageal varices type: secondary Esophageal varices bleeding: without bleeding Qualified Code(s): I85.10 - Secondary esophageal varices without bleed ing Code(s): I85.00 - Esophageal varices without bleeding Status: Acute
[2024-09-08 11:42] VITALS: BP 100/61; PULSE 76; RESP 28; O2SAT 99
[2024-09-08 11:52] VITALS: BP 108/66; PULSE 75; RESP 22; O2SAT 98
[2024-09-08 12:02] VITALS: BP 110/72; PULSE 73; RESP 20; O2SAT 97
== END 2024-09-08 12:14 | disposition home or self-care (01) ==
PROVIDERS: PCP Family Medicine; Referring Provider Family Medicine; Visit Provider Internal Medicine Gastroenterology
PROC: 0DJ08ZZ Inspection of Upper Intestinal Tract, Via Natural or Artificial Opening Endoscopic (ICD-10-PCS; CPT 43239; principal; 2024-09-08 12:15)
DX: I85.00 Esophageal varices without bleeding (principal); K74.60 Unspecified cirrhosis of liver; K31.89 Other diseases of stomach and duodenum; E78.5 Hyperlipidemia, unspecified; D69.6 Thrombocytopenia, unspecified; D64.9 Anemia, unspecified; E11.9 Type 2 diabetes mellitus without complications; I25.10 Atherosclerotic heart disease of native coronary artery without angina pectoris; E66.9 Obesity, unspecified; Z68.37 Body mass index [BMI] 37.0-37.9, adult; Z79.84 Long term (current) use of oral hypoglycemic drugs; Z79.85 Long-term (current) use of injectable non-insulin antidiabetic drugs; Z98.890 Other specified postprocedural states; Z86.0100 Personal history of colon polyps, unspecified; Z87.19 Personal history of other diseases of the digestive system; Z80.42 Family history of malignant neoplasm of prostate; Z80.0 Family history of malignant neoplasm of digestive organs
CPT/HCPCS: 43239; 82948; 88305; J2003; J2704; J7120